=== PATIENT | male | born 1980 | race Caucasian/White ===

== ENCOUNTER 2018-05-05 09:10 | Outpatient (CLI) | payer BC, SELFPAY ==
[2018-05-05 09:38] LABS: Abs Immature Grans 0.01 k/cumm (0.0-0.09); Absolute Basophil Count 0.03 k/cumm (0.0-0.2); Absolute Eosinophil Count 0.19 k/cumm (0.0-0.7); Absolute Lymphocyte Count 2.11 k/cumm (1.2-3.4); Absolute Monocyte Count 0.69 k/cumm (0.11-0.7); Basophils % 0.4; Eosinophils % 2.7; HCT 46.8 % (40.0-50.0); HGB 16.4 g/dL (13.5-17.5); Immature Grans % 0.1; Lymphocytes % 30.4; Mean Corpuscular Hemoglobin 29.2 pg (27.0-33.0); Mean Corpuscular Volume 83.4 fL (80-95); Mean Platelet Volume 9.3 fL (8.0-11.0); Neutrophils % 56.4; Platelet Count 250 x1000/uL (130-400); RBC 5.61 m/cumm (4.50-6.00); RBC Distribution Width 12.6 % (11.8-14.1); White Blood Cell Count 6.93 k/cumm (4.4-10.8)
[2018-05-05 09:52] LABS: ALT 33 U/L (12-78); AST 20 U/L (15-37); Albumin 4.4 g/dL (3.4-5.0); Alkaline Phosphatase 81 U/L (46-116); Anion Gap 8.6 mmol/L (3-11); BUN 19 mg/dL (7-18); Bilirubin, Total 0.5 mg/dL (0.2-1.0); CO2 29.4 mmol/L (21.0-32.0); Calcium 9.7 mg/dL (8.5-10.1); Chloride 101 mmol/L (98-107); Glucose 105 mg/dL (70-100); LDH 164 U/L (85-227); Potassium 4.3 mmol/L (3.5-5.1); Sodium 139 mmol/L (136-145); Total Protein 8.4 g/dL (6.4-8.2)
[2018-05-05 10:03] LABS: Cholesterol 199 mg/dL (50-200); HDL Cholesterol 56 mg/dL (40-60); LDL CHOLESTEROL 121 mg/dL (<100); Triglyceride 240 mg/dL (30-150)
== END 2018-05-05 09:30 ==
PROVIDERS: PCP Family Medicine; Visit Provider Internal Medicine Hematology & Oncology
DX: Z85.820 Personal history of malignant melanoma of skin (principal)
CPT/HCPCS: 36415; 80053; 80061; 83721; 83615; 85025

== ENCOUNTER 2019-05-07 02:04 | Outpatient (CLI) | payer BC, SELFPAY ==
[2019-05-07 08:07] LABS: Absolute Basophil Count 0.03 k/cumm (0.0-0.2); Absolute Eosinophil Count 0.37 k/cumm (0.0-0.7); Absolute Lymphocyte Count 1.95 k/cumm (1.2-3.4); Absolute Monocyte Count 0.58 k/cumm (0.11-0.7); Absolute Neutrophil Count 3.15 k/cumm (1.2-6.7); Basophils % 0.5; Eosinophils % 6.1; HCT 44.7 % (40.0-50.0); HGB 15.9 g/dL (13.5-17.5); Lymphocytes % 32.1; Mean Corp. HGB Concentration 35.6 g/dL (32.0-36.0); Mean Corpuscular Hemoglobin 29.5 pg (27.0-33.0); Mean Corpuscular Volume 82.9 fL (80-95); Mean Platelet Volume 9.2 fL (8.0-11.0); Monocytes % 9.5; Neutrophils % 51.8; Platelet Count 249 x1000/uL (130-400); RBC 5.39 m/cumm (4.50-6.00); RBC Distribution Width 12.5 % (11.8-14.1); White Blood Cell Count 6.08 k/cumm (4.4-10.8)
[2019-05-07 08:41] LABS: Calculated LDL 117 mg/dL (<100); Cholesterol 202 mg/dL (<200); Glucose 114 mg/dL (74-106); HDL Cholesterol 40 mg/dL (40-60); Triglyceride 229 mg/dL (<150)
[2019-05-07 08:42] LABS: ALT 44 U/L (16-63); AST 29 U/L (15-37); Albumin 4.3 g/dL (3.4-5.0); Alkaline Phosphatase 74 U/L (46-116); Anion Gap 8.8 mmol/L (3-11); BUN 16 mg/dL (7-18); Bilirubin, Total 0.6 mg/dL (0.2-1.0); CO2 29.2 mmol/L (21.0-32.0); CREATININE 1.11 mg/dL (0.70-1.30); Calcium 9.2 mg/dL (8.5-10.1); Chloride 104 mmol/L (98-107); Glucose 114 mg/dL (74-106); LDH 168 U/L (85-227); Potassium 4.3 mmol/L (3.5-5.1); Sodium 142 mmol/L (136-145); Total Protein 7.5 g/dL (6.4-8.2)
== END 2019-05-07 02:24 ==
PROVIDERS: PCP Family Medicine; Visit Provider Internal Medicine Hematology & Oncology
DX: C43.9 Malignant melanoma of skin, unspecified (principal); C77.9 Secondary and unspecified malignant neoplasm of lymph node, unspecified; E78.5 Hyperlipidemia, unspecified; R73.9 Hyperglycemia, unspecified
CPT/HCPCS: 36415; 80053; 80061; 82947; 83615; 85025

== ENCOUNTER 2019-05-17 07:01 | Outpatient (CLI) | payer BC, SELFPAY ==
[2019-05-17 09:05] LABS: Hemoglobin A1C 5.7 % (3.8-5.6)
== END 2019-05-17 07:21 ==
PROVIDERS: PCP Family Medicine; Visit Provider Family Medicine
DX: R73.9 Hyperglycemia, unspecified (principal)
CPT/HCPCS: 36415; 83036

== ENCOUNTER 2020-05-05 12:50 | Outpatient (CLI) | payer BC, SELFPAY ==
[2020-05-05 13:33] LABS: Abs Immature Grans 0.03 10^3/uL (0.0-0.06); Absolute Basophil Count 0.03 10^3/uL (0.0-0.2); Absolute Eosinophil Count 0.13 10^3/uL (0.0-0.7); Absolute Monocyte Count 0.58 10^3/uL (0.1-0.8); Absolute Neutrophil Count 4.22 10^3/uL (1.2-6.7); Basophils % 0.4; Eosinophils % 1.8; HCT 45.1 % (40.0-50.0); Immature Grans % 0.4; Lymphocytes % 31.6; MCH 29.6 pg (27.0-33.0); MCHC 35.5 % (32.0-36.0); MCV 83.4 fL (80-95); MPV 9.3 fL (8.0-11.0); Neutrophils % 57.8; Nucleated RBC 0 %; Platelet Count 259 10^3/uL (130-400); RBC 5.41 10^6/uL (4.36-5.78); RDW 11.9 % (11.8-14.1); RDW-SD 35.2 fL; WBC 7.29 10^3/uL (4.4-10.8)
[2020-05-05 13:45] LABS: ALT 41 U/L (16-63); AST 24 U/L (15-37); Albumin 4.4 g/dL (3.4-5.0); Alkaline Phosphatase 72 U/L (46-116); Anion Gap 5.4 mmol/L (3-11); BUN 20 mg/dL (7-18); Bilirubin, Total 0.6 mg/dL (0.2-1.0); CO2 28.6 mmol/L (21.0-32.0); CREATININE 0.9 mg/dL (0.70-1.30); Calcium 9.8 mg/dL (8.5-10.1); Chloride 103 mmol/L (98-107); Glucose 114 mg/dL (74-106); Potassium 4.1 mmol/L (3.5-5.1); Sodium 137 mmol/L (136-145); Total Protein 8.2 g/dL (6.4-8.2)
[2020-05-05 13:56] LABS: Calculated LDL 84 mg/dL (<100); Cholesterol 194 mg/dL (<200); HDL Cholesterol 45 mg/dL (40-60); Triglyceride 329 mg/dL (<150)
[2020-05-05 14:02] LABS: Hemoglobin A1C 5.5 % (<5.7)
== END 2020-05-05 12:51 | disposition home or self-care (01) ==
LOC: LBO 12:50
PROVIDERS: PCP Family Medicine; Visit Provider Internal Medicine Hematology & Oncology
DX: E78.5 Hyperlipidemia, unspecified (principal); R73.9 Hyperglycemia, unspecified
CPT/HCPCS: 36415; 80053; 80061; 83036; 84478; 85025

== ENCOUNTER 2021-05-08 03:59 | Outpatient (CLI) | payer BC, SELFPAY ==
[2021-05-08 15:13] LABS: Abs Immature Grans 0.03 10^3/uL (0.0-0.06); Absolute Basophil Count 0.03 10^3/uL (0.0-0.2); Absolute Eosinophil Count 0.17 10^3/uL (0.0-0.7); Absolute Lymphocyte Count 2.73 10^3/uL (1.2-3.4); Absolute Monocyte Count 0.54 10^3/uL (0.1-0.8); Absolute Neutrophil Count 4.83 10^3/uL (1.2-6.7); Basophils % 0.4; HCT 42.7 % (40.0-50.0); Immature Grans % 0.4; Lymphocytes % 32.8; MCH 29.1 pg (27.0-33.0); MCHC 35.1 % (32.0-36.0); MCV 82.9 fL (80-95); MPV 9.1 fL (8.0-11.0); Monocytes % 6.5; Neutrophils % 57.9; Nucleated RBC 0 %; Platelet Count 344 10^3/uL (130-400); RBC 5.15 10^6/uL (4.36-5.78); RDW 11.7 % (11.8-14.1); RDW-SD 35.1 fL; WBC 8.33 10^3/uL (4.4-10.8)
[2021-05-08 15:28] LABS: ALT 36 U/L (16-63); AST 17 U/L (15-37); Albumin 4.1 g/dL (3.4-5.0); Alkaline Phosphatase 74 U/L (46-116); Anion Gap 10.6 mmol/L (3-11); BUN 16 mg/dL (7-18); Bilirubin, Total 0.4 mg/dL (0.2-1.0); CO2 25.4 mmol/L (21.0-32.0); CREATININE 1.1 mg/dL (0.70-1.30); Calcium 9.3 mg/dL (8.5-10.1); Chloride 102 mmol/L (98-107); Cholesterol 203 mg/dL (<200); Glucose 100 mg/dL (74-106); HDL Cholesterol 29 mg/dL (40-60); Potassium 3.7 mmol/L (3.5-5.1); Sodium 138 mmol/L (136-145); Total Protein 7.9 g/dL (6.4-8.2); Triglyceride 561 mg/dL (<150)
[2021-05-08 15:42] LABS: LDL CHOLESTEROL 82 mg/dL (<100)
== END 2021-05-08 04:00 | disposition home or self-care (01) ==
PROVIDERS: PCP Family Medicine; Visit Provider Nurse Practitioner Family
DX: C43.9 Malignant melanoma of skin, unspecified (principal); C77.9 Secondary and unspecified malignant neoplasm of lymph node, unspecified
CPT/HCPCS: 36415; 80053; 80061; 83721; 85025

== ENCOUNTER 2022-04-15 01:55 | Outpatient (CLI) | payer BC, SELFPAY ==
[2022-04-15 08:43] LABS: Calculated LDL 85 mg/dL (<100); Cholesterol 146 mg/dL (<200); HDL Cholesterol 43 mg/dL (40-60); Triglyceride 93 mg/dL (<150)
== END 2022-04-15 01:56 | disposition home or self-care (01) ==
LOC: LBO 01:55
PROVIDERS: PCP Family Medicine; Visit Provider Family Medicine
DX: E78.5 Hyperlipidemia, unspecified (principal)
CPT/HCPCS: 36415; 80061

== ENCOUNTER 2023-02-06 13:28 | Emergency (ER) | payer BC, SELFPAY ==
[2023-02-06 13:31] VITALS: BP 135/92; PULSE 108; RESP 18; TEMP 36.2; O2SAT 99
[2023-02-06 13:44] VITALS: BP 135/92; PULSE 108; RESP 18; TEMP 36.1; O2SAT 99
--- NOTE | 2023-02-06 14:18 | ED.GENADUL_ITS ---
Discharge Plan Disposition Patient Disposition: Home Condition: Stable Discharge Details Clinical Impression: Metastatic disease, Nausea & vomiting, Abdominal pain Primary Care Provider: Edwardo Bhakta ED Provider: Jil Carlson Home Meds and New Rx's Prescriptions: New ondansetron 4 mg tablet,disintegrating 4 mg PO Q8H PRN (Reason: nausea and vomiting) Qty: 20 0RF No Action ascorbic acid (vitamin C) 500 mg tablet 1,000 mg PO DAILY niacin (inositol niacinate) 500 mg capsule 1 cap PO DAILY acetylcysteine [NAC] 600 mg capsule 1,200 mg PO DAILY cholecalciferol (vitamin D3) 1,000 UNIT capsule 1 cap PO DAILY omega-3 fatty acids-fish oil 1 EACH capsule 1 cap PO DAILY THERAGRAN-M PREMIER CAPLET 1 EACH tablet 1 tab PO DAILY Discharge Instructions Instructions: Acute Nausea and Vomiting (ED) Additional Instructions: [facility] oncology will contact you in the next 1 to 2 days for your follow-up information Start with clear liquids and bland diet and advance slowly as tolerated Return to the emergency department if you start to have headache, visual changes, dizziness, ringing in your ears or any other new neurologic symptoms. Also return if you have vomiting that is not controlled by the Zofran Medical Decision Making Emergent evaluation of abdominal pain and vomiting. Initial differential includes viral illness, foodborne illness, renal colic, less likely appendicitis. Patient is pain-free at this time. Has a benign abdominal exam. Initial plan for fluid resuscitation, antiemetics, will check lab work and get CT imaging given the severity of his symptoms Patient CT imaging concerning for metastatic disease with pulmonary nodules and multiple nodes in the abdomen. Possible small bowel obstruction. Discussed with general surgery, she is recommending more extensive imaging to evaluate. I updated the patient on the imaging findings and he is feeling better. No additional nausea or vomiting, abdomen remains soft. Patient reports that he did have melanoma 11 years ago and was treated with chemotherapy at that time. 1755: Additional CT imaging reviewed. The patient has large adrenal masses bilaterally, multiple nodes in the retroperitoneum, left ilium lytic lesion. There are bilateral brain metastasis noted with edema, no mass effect or shift. I have contacted oncology services at [facility] for consultation and guidance regarding the patient's final disposition. Discussed with oncology fellow at [facility]. He has reviewed the patient's lab work and imaging. The working diagnosis is recurrence of metastatic melanoma. At this time he has no neurologic symptoms such as headache, visual change, dizziness, and is otherwise symptom-free regarding his abdominal pain and vomiting. They do not feel he needs to be transferred at this time but will schedule him for urgent follow-up. I discussed this with the patient and his family. Updated him on the imaging results and the plan with oncology. At this time I feel he is stable for discharge. He is provided a prescription for Zofran and instructed to advance his diet slowly after his vomiting. Strict return precautions including any neurologic symptoms headache, visual change, dizziness, ear ringing. In addition any persistent vomiting he should return to ED. Patient and family feel comfortable going home and are in aggreement with this plan Medical Records Medical records reviewed: Yes I reviewed the patient's medical records. Lab Data Lab results reviewed: Yes I reviewed the patient's lab results. HPI General Date/Time Provider Initiated Documentation: 02/06/23 13:41 . Limitations to Documentation: no limitations . Information obtained by: patient . HPI Narrative: 42-year-old gentleman with out significant past medical history presents for evaluation of abdominal pain and vomiting. Reports onset of symptoms at 9 PM last night. Reports multiple episodes of vomiting and has been dry heaving all day. No associated diarrhea. Has not been able to tolerate anything by mouth. Has only had 1 urine output today. Urine did not have blood, frequency urgency or dysuria. He reports that the vomiting is associated with severe pain. Pain is generalized, it comes and goes in waves. No known sick contacts. Went out to eat last night with friends and no one else has been vomiting. Related Data Home Medications Medication Instructions Recorded Confirmed Theragran-M Premier Caplet 1 tab PO DAILY 07/12/12 02/06/23 cholecalciferol (vitamin D3) 25 1 cap PO DAILY 07/12/12 02/06/23 mcg (1,000 unit) capsule omega-3 fatty acids-fish oil 300 1 cap PO DAILY 07/12/12 02/06/23 mg-1,000 mg capsule acetylcysteine 600 mg capsule (NAC) 1,200 mg PO DAILY 05/27/22 02/06/23 ascorbic acid (vitamin C) 500 mg 1,000 mg PO DAILY 05/27/22 02/06/23 tablet niacin (inositol niacinate) 500 mg 1 cap PO DAILY 05/27/22 02/06/23 capsule ondansetron 4 mg disintegrating 4 mg PO Q8H PRN nausea and 02/06/23 tablet vomiting #20 tabs Previous Rx's Medication Instructions Recorded ondansetron 4 mg disintegrating 4 mg PO Q8H PRN nausea and 02/06/23 tablet vomiting #20 tabs Allergies Allergy/AdvReac Type Severity Reaction Status Date / Time pineapple Allergy Intermediate childhood Verified 02/06/23 13:36 allergy General Stated Complaint: Abd Prob JEZ: 3 PFSH All Active Problems (Updated 02/06/23 @ 18:48 by Jil Carlson MD) Abdominal pain (Acute) Nausea & vomiting (Acute) Metastatic disease (Acute) SBO (small bowel obstruction) (Acute) Secondary to probable intra-abdominal metastatic melanoma Metastatic melanoma to lung (Acute) Melanoma metastatic to brain (Acute) Metastasis from malignant melanoma of skin (Acute) 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 Sister No problems noted. Brother No problems noted. Son No problems noted. Paternal Grandfather , age 85 No problems noted. Paternal Grandmother , age 65ish Cancer Social History Smoking/Tobacco Use Status: Former Tobacco Use Second Hand Exposure: Yes Smoking risk assessment performed?: Yes Alcohol Intake: current Alcohol Intake frequency: a few times a week Alcohol type: beer, wine and hard liquor Drug use: Never Substance use type: unknown Caregiver/Support person: No Household members: spouse and children Housing: house Number of Children: 1 Communication Needs: None Do you need help understanding health information?: Rarely Pets and animals: Yes Sexually active: Yes Do you think of yourself as: straight/heterosexual Current gender identity: male What is your relationship status?: How often do you talk on the phone with friends or family?: three or more times per week How often do you get together with friends or relatives?: once per week How often do you attend mormonism or yazdanism services?: decline to answer Do you belong to any clubs or organized social groups?: no Panel score (0-1 are the most socially isolated patients): 2 What type of physical activity do you participate in: decline to answer Duration: decline to answer Frequency: decline to answer Tamiko/Yazidism: None Special tamiko needs: No Seatbelt use: sometimes Helmet use: Yes Helmet use: sometimes Drive intox or ride w/intox boat driver: No Water heater temp set <120 deg: Yes Working smoke detector in home: Yes Fire extinguisher in home: Yes Carbon monox detector in home: Yes Firearms in home: Yes Firearms unloaded and locked: Yes Exam Narrative Exam Narrative: Review of Systems: All systems reviewed & are unremarkable except as noted in HPI and below: CONSTITUTIONAL: Alert and oriented Well-developed, no acute distress HEENT: NCAT EYES: PERRL, no conjunctival injection MOUTH dry MM CVS: Tachycardic, No murmurs or gallops. Peripheral pulses 2+ and equal in all extremities Brisk capillary refill in all extremities. No peripheral edema RESP: Unlabored respiratory effort, Clear to auscultation bilaterally No wheezes rales or rhonchi GI: Soft, Nontender, Nondistended, No organomegaly MSK: Extremities with full range of motion, no deformity or TTP SKIN: Warm, Dry. No rashes or lesions. NEURO: No focal neurologic deficits. Course Vital Signs Vital signs: Vital Signs Temperature 36.2 C L 02/06/23 13:31 Pulse 108 H 02/06/23 13:31 Respiratory Rate 18 02/06/23 13:31 Blood Pressure 135/92 H 02/06/23 13:31 Pulse Oximetry 99 02/06/23 13:31 Temperature 36.1 C L 02/06/23 13:44 Temperature Source Temporal Artery Scan 02/06/23 13:44 Pulse 108 H 02/06/23 13:44 Respiratory Rate 18 02/06/23 13:44 Respiratory Effort Normal 02/06/23 13:35 Blood Pressure 135/92 H 02/06/23 13:44 Blood Pressure Position Sitting 02/06/23 13:31 Pulse Oximetry 99 02/06/23 13:44 Oxygen Delivery Method Room Air 02/06/23 13:31 Oxygen Flow Rate 0 02/06/23 13:31
[2023-02-06] MEDS: Normal Saline 1,000 ML 1000 ML IV ×2 (14:32→15:57)
[2023-02-06] MEDS: FAMOTIDINE 20 MG/50 ML BAG 196.078 MG IV (14:32)
[2023-02-06] MEDS: Ketorolac 15 MG/ML VIAL 10 MG IVP (14:32)
[2023-02-06] MEDS: Ondansetron 4 MG/2 ML VIAL IVP (14:32)
[2023-02-06 14:33] LABS: Abs Immature Grans 0.06 10^3/uL (0.0-0.06); Absolute Lymphocyte Count 1.32 10^3/uL (1.2-3.4); Basophils % 0.3; Eosinophils % 0.1; HGB 14.9 g/dL (13.5-17.5); Immature Grans % 0.4; Lymphocytes % 8.5; MCH 26.7 pg (27.0-33.0); MCHC 33.9 % (32.0-36.0); MCV 79 fL (80-95); MPV 8.8 fL (8.0-11.0); Monocytes % 5.8; Neutrophils % 84.9; Platelet Count 354 10^3/uL (130-400); RBC 5.58 10^6/uL (4.36-5.78); RDW 12.5 % (11.8-14.1); RDW-SD 35.2 fL; WBC 15.57 10^3/uL (4.4-10.8)
[2023-02-06 14:34] LABS: Absolute Basophil Count 0.05 10^3/uL (0.0-0.2); Absolute Eosinophil Count 0.02 10^3/uL (0.0-0.7); Absolute Neutrophil Count 13.22 10^3/uL (1.2-6.7)
[2023-02-06 14:51] LABS: ALT 24 U/L (16-63); AST 15 U/L (15-37); Albumin 3.8 g/dL (3.4-5.0); Alkaline Phosphatase 104 U/L (46-116); Anion Gap 9.4 mmol/L (3-11); BUN 17 mg/dL (7-18); Bilirubin, Total 0.5 mg/dL (0.2-1.0); CO2 28.6 mmol/L (21.0-32.0); Calcium 9.6 mg/dL (8.5-10.1); Chloride 102 mmol/L (98-107); Estimated GFR 96.37 (mL/min/1.73m2); Glucose 136 mg/dL (74-106); Lipase 34 U/L (16-77); Magnesium 1.9 mg/dL (1.8-2.4); Potassium 3.9 mmol/L (3.5-5.1); Sodium 140 mmol/L (136-145); Total Protein 7.8 g/dL (6.4-8.2)
--- NOTE | 2023-02-06 15:26 | DI.CT_ITS ---
Exam(s) CT RENAL COLIC WO EXAM: CT RENAL COLIC WO CLINICAL HISTORY: abd pain. TECHNIQUE: Imaging Protocol: Axial computed tomography images with coronal and sagittal reformatted images were created and reviewed CONTRAST MATERIAL: Intravenous: none Oral: None COMPARISON: CT ABD/PELVIS WO W CONTRAST from 01/18/2011 CT CHEST ABD PELVIS WITH CONTRAST from 02/22/2012 FINDINGS: VISUALIZED LUNG BASES: There are multiple concerning nodules now evident in both visualized lung base s worrisome for metastatic disease. These range up to 13 mm size. There are no pleural effusions.. ABDOMEN: There is no ascites in the upper abdomen but there is small amount of ascites in the dependent aspect of the pelvis in this male patient.. LIVER: There are no obvious focal hepatic lesions evident of this noninfused study. GALLBLADDER/BILIARY: No obvious gallbladder pathology. CBD is not dilated. PANCREAS: No evidence of pancreatic mass nor dilatation of the pancreatic duct. SPLEEN: Spleen is not enlarged. No obvious intrasplenic lesions. ADRENALS: Bilateral concerning adrenal masses which were not previously evident in 2012 and most prob ably metastatic, given the findings in the lungs. On the right side this measures 5 x 3.5 cm. On th e left side the adrenal mass measures 4 by 2.6 cm. There also multiple nodules evident in the peritoneal cavity consistent with metastatic disease. KIDNEYS:No cysts evident. No solid renal masses. No calculi nor hydronephrosis. . ABDOMINAL AORTA: Abdominal aorta is not enlarged. LYMPH NODES: There is no retroperitoneal nor paraaortic adenopathy. ABDOMINAL WALL: No evidence of significant anterior abdominal wall nor inguinal hernia. GI: There are dilated small bowel loops measuring up to 3.3 cm, consistent with element of small ronit l obstruction. Transition point is in the right-side of the abdomen. PELVIS: LYMPH NODES: There is no intrapelvic nor inguinal adenopathy. GI: No evidence of appendicitis.No significant sigmoid diverticular disease. URINARY BLADDER: No calculi nor obvious masses evident REPRODUCTIVE: Prostate size upper normal. Seminal vesicles unremarkable. OSSEOUS: Lytic bone lesion noted in left side of the pelvis-left iliac bone.. This measures 4 cm cep halocaudal by 3 cm wide by 4 cm AP. No fracture seen. IMPRESSION: 1. Multilevel findings which are concerning for metastatic disease. There are multiple nodules in th e visualized lung bases which were not previously present and there are large masses in both adrenal glands with measurements as above which were not previously present and are suspicious for metastatic disease. 2. There also scattered nodules in the peritoneal cavity suspicious for metastatic disease. 3. There is a mid-distal small bowel obstruction pattern with transition point in the right-side of t he abdomen. There is some associated free fluid in the dependent aspect of the pelvis. Surgical con sultation recommended. RADIATION DOSE DELIVERED: Total DLP DATA REPOSITORY: All CT scans at this facility are submitted to the National Radiology Data Registry (NRDR) Dose Index Registry (DIR) with the [employer] (ACR). RADIATION OPTIMIZATION: All CT scans at this facility use at least one of these dose optimization te chniques: automated exposure control; mA and/or kV adjustment per patient size (includes targeted exa ms where dose is matched to clinical indication); or iterative reconstruction.
--- NOTE | 2023-02-06 16:04 | DI.VRAD_ITS ---
Addendum created by Nicolle Shaw MD on 02/06/2023 4:16:05 PM EST: THIS REPORT CONTAINS FINDINGS THAT MAY BE CRITICAL TO PATIENT CARE. The findings were verbally communicated via telephone conference with RUSSELL LEE at 4:15 PM EST on 02/06/2023. The findings were acknowledged and understood. Initial report created on 02/06/2023 4:04:33 PM EST: PROCEDURE INFORMATION: Exam: CT Abdomen And Pelvis Without Contrast Exam date and time: 02/06/2023 3:22 PM Age: 42 years old Clinical indication: Abdominal pain; Generalized; Patient HX: General mid abd pain TECHNIQUE: Imaging protocol: Computed tomography of the abdomen and pelvis without contrast. Radiation optimization: All CT scans at this facility use at least one of these dose optimization techniques: automated exposure control; mA and/or kV adjustment per patient size (includes targeted exams where dose is matched to clinical indication); or iterative reconstruction. COMPARISON: No relevant prior studies available. FINDINGS: Lungs: Multiple pulmonary nodules may represent metastatic disease.. Liver: Large area of low attenuation in the liver may represent fatty infiltration. Gallbladder and bile ducts: Normal. No calcified stones. No ductal dilation. Pancreas: Normal. No ductal dilation. Spleen: Normal. No splenomegaly. Adrenal glands: Both adrenal glands are enlarged and are not adrenal adenomas. Right adrenal 5 x 3.8 cm. Left adrenal gland 4 by 2.7 cm. Findings worrisome for metastatic disease. Kidneys and ureters: Normal. No hydronephrosis. Stomach and bowel: Dilated loops of small bowel with air-fluid levels may represent ileus or small bowel obstruction. Transition point may be in the right. Series 2, image 60- 56. The colon and distal small bowel are decompressed. Appendix: No evidence of appendicitis. Intraperitoneal space: Mild amount of free fluid in the pelvis Vasculature: Unremarkable. No abdominal aortic aneurysm. Lymph nodes: 19 x 15 mm node between the right kidney and inferior vena cava series 2, image 40 . Additional multiple scattered nodules in the peritoneal cavity may represent metastatic lesions. Urinary bladder: Unremarkable as visualized. Reproductive: Unremarkable as visualized. Bones/joints: 3.8 cm lucent lesion in the left ilium series 2 image 71 May represent a cyst or a lytic lesion. Recommend bone scan or PET scan for further evaluation. Soft tissues: Unremarkable. IMPRESSION: 1. Multiple pulmonary nodules may represent metastatic disease.. 2. 3.8 cm lucent lesion in the left ilium series 2 image 71 May represent a cyst or a lytic lesion. Recommend bone scan or PET scan for further evaluation. 3. Both adrenal glands are enlarged and are not adrenal adenomas. Right adrenal 5 x 3.8 cm. Left adrenal gland 4 by 2.7 cm. Findings worrisome for metastatic disease. 4. 19 x 15 mm node between the right kidney and inferior vena cava series 2, image 40 . Additional multiple scattered nodules in the peritoneal cavity may represent metastatic lesions. 5. Dilated loops of small bowel with air-fluid levels may represent ileus or small bowel obstruction. Transition point may be in the right. Series 2, image 60- 56. Dictated and Authenticated by: Nicolle Shaw MD. Ordering:JAYMIE Kim MD
[2023-02-06 16:33] VITALS: TEMP 36.9
[2023-02-06 16:34] VITALS: BP 107/75; PULSE 81; RESP 18; TEMP 36.9; O2SAT 97
[2023-02-06 16:41] LABS: Lab Add On Test DONE
[2023-02-06] MEDS: Normal Saline Flush 10 ML SYR IVP (16:43)
[2023-02-06] MEDS: Normal Saline - Diluent 50 ML VIAL IJ (16:43)
[2023-02-06] MEDS: Omnipaque 350 MG/ML 100 ML BTL IJ (16:50)
--- NOTE | 2023-02-06 16:55 | W.PM.PROGNOT ---
Date of Service Date of service: 02/06/23 Time of Service: 16:55 Assessment and Plan Assessment and plan (1) Metastatic melanoma to lymph node: Status: Acute (2) Hyperlipidemia: Status: Acute (3) Excessive drinking alcohol: Status: Chronic (4) Metastasis from malignant melanoma of skin: Status: Acute (5) Melanoma metastatic to brain: Status: Acute (6) Metastatic melanoma to lung: Status: Acute (7) SBO (small bowel obstruction): Status: Acute Subjective Subjective Interval history since last seen: Patient presented to the ER complaining of nonspecific abdominal pain and nausea and vomiting. Patient has a history of melanoma that was diagnosed in 2009. It was a stage IIIb. He did do interferon therapy in 2010. He had an intolerance to the therapy and its unclear if it was completed. He has not seen oncology recently. He does follow-up with dermatology and has no further suspicious lesions. He has not had any imaging in our facility since 2011. He has not followed up with oncology since 2019 at [facility] Ct 02/2023 IMPRESSION: 1. Multiple pulmonary nodules may represent metastatic disease.. 2. 3.8 cm lucent lesion in the left ilium series 2 image 71 May represent a cyst or a lytic lesion. Recommend bone scan or PET scan for further evaluation. 3. Both adrenal glands are enlarged and are not adrenal adenomas. Right adrenal 5 x 3.8 cm. Left adrenal gland 4 by 2.7 cm. Findings worrisome for metastatic disease. 4. 19 x 15 mm node between the right kidney and inferior vena cava series 2, image 40 . Additional multiple scattered nodules in the peritoneal cavity may represent metastatic lesions. 5. Dilated loops of small bowel with air-fluid levels may represent ileus or small bowel obstruction. Transition point may be in the right. Series 2, image 60- 56. I did review the notes from his [facility] chart; oncology notes from Dr. Buckley. Unfortunately it does appear that he has widely metastatic disease and may have a bowel obstruction due to intra-abdominal mets/intraperitoneal studding. No ascites is noted. However, the CT was a kidney stone protocol CT. We will do a dedicated CT of the head/chest/abdomen/pelvis. Additional laboratory work ordered. Unfortunately patient does appear to have widely metastatic melanoma. He is going to need a biopsy with genetic markers. He is going to need to get started on biologic immunotherapy immediately to resolve bowel obstruction. Being that we did not have the capacity to do a biopsy or chemo, it is imperative that he be sent to a tertiary center where he has access to these. Findings communicated to Dr. Carlson Objective Last Vital Signs Temp 36.9 C 02/06/23 16:34 Pulse 81 02/06/23 16:34 Resp 18 02/06/23 16:34 BP 107/75 02/06/23 16:34 Pulse Ox 97 02/06/23 16:34 Laboratory Results - last 24 hr 02/06/23 14:25 WBC 15.57 H RBC 5.58 Hgb 14.9 Hct 44.0 MCV 79 L MCH 26.7 L MCHC 33.9 RDW 12.5 Plt Count 354 MPV 8.8 Immature Gran % 0.4 Neutrophils % 84.9 Lymphocytes % 8.5 Monocytes % 5.8 Eosinophils % 0.1 Basophils % 0.3 Nucleated RBC % 0.0 Absolute Neutrophils 13.22 H Absolute Lymphocytes 1.32 Absolute Monocytes 0.90 H Absolute Eosinophils 0.02 Absolute Basophils 0.05 Sodium 140 Potassium 3.9 Chloride 102 Carbon Dioxide 28.6 Anion Gap 9.4 BUN 17 Creatinine 1.0 Est GFR (CKD-EPI 2020) 96.37 Glucose 136 H Calcium 9.6 Magnesium 1.9 Total Bilirubin 0.5 AST 15 ALT 24 Alkaline Phosphatase 104 Total Protein 7.8 Albumin 3.8 Lipase 34 Add-On Test Request DONE Time Spent with Patient Time Spent with Patient: 35-49 minutes Time was spent: preparing to see the patient(eg.review tests), ordering medications,tests, procedures, referring, communicating with other health day care provider, indepentently interpreting results and care coordination
[2023-02-06 17:17] LABS: C-Reactive Protein 2.81 mg/dL (0.0-0.3); Ferritin 50 ng/mL (26-388)
--- NOTE | 2023-02-06 17:18 | DI.CT_ITS ---
Exam(s) CT CHEST/ABD/PEL W EXAM: CT CHEST/ABD/PEL W CLINICAL HISTORY: SBO/malig melanoma. TECHNIQUE: Imaging Protocol: Axial computed tomography images with coronal and sagittal reformatted images were created and reviewed CONTRAST MATERIAL: Intravenous: Omnipaque 350 Contrast volume:100 ml Oral: None COMPARISON: CT CT RENAL COLIC WO from 02/06/2023 FINDINGS: CHEST: LUNGS: There are multiple metastatic nodules throughout both lung alford, the largest measuring 12 mm . No associated pleural effusions. No confluent infiltrates. No findings in the trachea and mainst em bronchi.. MEDIASTINUM: There is no hilar nor mediastinal adenopathy. Visualized thyroid unremarkable.There is a large mass in the left axilla measuring 4.6 x 3.7 cm most probably metastatic. This is in addition to smaller but abnormal appearing lymph nodes in both axillary regions. There is also a subcutaneous nodule anterior to the left pectoralis muscle measuring 1.2 x 1.3 cm, probably also metastatic. CARDIAC: Heart size is normal. There is no pericardial effusion.Caliber of the thoracic aorta is wit hin normal limits. OSSEOUS: No significant osseous lesions.. ABDOMEN: There metastatic nodules throughout the peritoneal cavity. LIVER: There are no focal hepatic lesions nor dilatation of intrahepatic ducts. GALLBLADDER/BILIARY: No obvious gallbladder pathology. CBD is not dilated. PANCREAS: No evidence of pancreatic mass nor dilatation of the pancreatic duct. SPLEEN: Spleen is not enlarged. There are no intrasplenic lesions. Splenic and portal veins are valentine nt. ADRENALS: Large bilateral metastatic lesions now evident in both adrenal glands measuring 5 cm on the right-sided 4 cm on the left side. KIDNEYS: No calculi nor hydronephrosis. No solid renal masses. No cysts. There is metastatic lesion in the fat between the IVC and right kidney measuring 1.5 x 1.6 cm. ABDOMINAL AORTA: Abdominal aorta is not enlarged. ABDOMINAL WALL: No evidence of significant anterior abdominal wall nor inguinal hernia. GI: Stomach duodenum are not distended.However, there are dilated small bowel loops with transition p oint in right lower quadrant. Suspicious for small bowel obstruction with transition point in the ri ght side of the abdomen PELVIS: LYMPH NODES: There is no intrapelvic nor inguinal adenopathy. GI: No evidence of appendicitis.No evidence of sigmoid diverticulitis. URINARY BLADDER: No calculi nor masses evident REPRODUCTIVE: Prostate size normal. Seminal vesicles unremarkable. There is some free fluid in the pelvis in this male patient. OSSEOUS: Lytic appearing bone lesion above the hip acetabulum left side of the pelvis measuring 4 x 3 cm. No fractures. IMPRESSION: 1. Diffuse metastatic disease in the chest and abdomen, as described above. 2. Dilated loops of small bowel +small amount of ascites suggest small-bowel obstruction with transit ion point in the right-side of the abdomen RADIATION DOSE DELIVERED: Total DLP DATA REPOSITORY: All CT scans at this facility are submitted to the National Radiology Data Registry (NRDR) Dose Index Registry (DIR) with the [employer] (ACR). RADIATION OPTIMIZATION: All CT scans at this facility use at least one of these dose optimization te chniques: automated exposure control; mA and/or kV adjustment per patient size (includes targeted exa ms where dose is matched to clinical indication); or iterative reconstruction.
--- NOTE | 2023-02-06 17:19 | DI.CT_ITS ---
Exam(s) CT HEAD W EXAM: CT HEAD W CLINICAL HISTORY: Brain mets. History of melanoma. TECHNIQUE: Imaging Protocol: Both noninfused and contrast infused CT scans of the brain were perform ed. IV Contrast Dose =75 cc Axial computed tomography images with coronal and sagittal reformatted images were created and review ed COMPARISON: No exams were available for comparison FINDINGS: There are no skull fractures, skull lesions, nor fluid in the visualized paranasal sinuses. There are multiple enhancing metastatic lesions in both sides of the brain as well as 1 enhancing les ion in the peripheral aspect of the right cerebellar hemisphere which measures 9 x 9 mm. Minimal keila rounding edema. The lesions in the supra tentorial compartment measure up to 1.2 cm size and exhibit minimal surrounding edema. No shift. No ventriculomegaly. IMPRESSION: There are multiple bilateral enhancing metastases in the brain, predominately supra tentorial but the re is also 1 enhancing similar lesion in the peripheral aspect of the right cerebellar hemisphere.The se lesions are associated with mild edema and without significant mass effect. No shift of midline s tructures. No ventriculomegaly. No lytic nor blastic lesions evident in the skull.. RADIATION DOSE DELIVERED: Total DLP DATA REPOSITORY: All CT scans at this facility are submitted to the National Radiology Data Registry (NRDR) Dose Index Registry (DIR) with the [employer] (A[employer]). RADIATION OPTIMIZATION: All CT scans at this facility use at least one of these dose optimization te chniques: automated exposure control; mA and/or kV adjustment per patient size (includes targeted exa ms where dose is matched to clinical indication); or iterative reconstruction.
--- NOTE | 2023-02-06 17:19 | DI.VRAD_ITS ---
PROCEDURE INFORMATION: Exam: CT Head With Contrast Exam date and time: 02/06/2023 4:58 PM Age: 42 years old Clinical indication: Abnormal findings; Abnormal radiologic findings of head/skull; Not specified; Patient HX: Odered per provider; Additional info: Was ordered w/ and w/o after cap w/c was done. Scanned 5 minutes after contrast injection TECHNIQUE: Imaging protocol: Computed tomography of the head with intravenous contrast. Radiation optimization: All CT scans at this facility use at least one of these dose optimization techniques: automated exposure control; mA and/or kV adjustment per patient size (includes targeted exams where dose is matched to clinical indication); or iterative reconstruction. Contrast material: OMNI 350; Contrast volume: 100 ml; Contrast route: INTRAVENOUS (IV); COMPARISON: No relevant prior studies available. FINDINGS: Brain: Multiple enhancing lesions bilaterally in the cerebral hemispheres measuring up to 15 mm right occipital lobe. Mild surrounding edema. Right lateral cerebellar lesion measuring up to 8 mm Cerebral ventricles: Unremarkable. No ventriculomegaly. Bones/joints: Unremarkable. No acute fracture. Paranasal sinuses: Visualized sinuses are unremarkable. No fluid levels. Mastoid air cells: Visualized mastoid air cells are well aerated. Soft tissues: Unremarkable. IMPRESSION: Bilateral metastases as described . Mild edema without significant mass effect Dictated and Authenticated by: Benjamin Montano MD. Ordering:SLICK Montalvo MD
[2023-02-06 17:29] LABS: Vitamin D 25 Total 19.8 ng/mL (30-100)
--- NOTE | 2023-02-06 17:40 | DI.VRAD_ITS ---
PROCEDURE INFORMATION: Exam: CT Chest With Contrast; Diagnostic Exam date and time: 02/06/2023 4:48 PM Age: 42 years old Clinical indication: Other: Pain; Other: Check for malignancy; Patient HX: PT had a non con renal colic appx 1 TECHNIQUE: Imaging protocol: Diagnostic computed tomography of the chest with contrast. 3D rendering (Not supervised by radiologist): MIP and/or 3D reconstructed images were created by the technologist. Radiation optimization: All CT scans at this facility use at least one of these dose optimization techniques: automated exposure control; mA and/or kV adjustment per patient size (includes targeted exams where dose is matched to clinical indication); or iterative reconstruction. Contrast material: OMNI 350; Contrast volume: 100 ml; Contrast route: INTRAVENOUS (IV); COMPARISON: CT RENAL COLIC WO 02/06/2023 3:22 PM FINDINGS: Lungs: Multiple pulmonary nodules bilaterally consistent with pulmonary metastasis. Pleural spaces: Unremarkable. No pneumothorax. No pleural effusion. Heart: Unremarkable. No cardiomegaly. No pericardial effusion. Lymph nodes: Large node in the left axilla 4.3 x 3.9 cm series 4, image 17. Additional nodes in the soft tissues bilaterally. Vasculature: Unremarkable. No aortic aneurysm. Bones/joints: Unremarkable. No acute fracture. Soft tissues: Unremarkable. IMPRESSION: 1. Large node in the left axilla 4.3 x 3.9 cm series 4, image 17. Additional nodes in the soft tissues bilaterally. 2. Multiple pulmonary nodules bilaterally consistent with pulmonary metastasis. PROCEDURE INFORMATION: Exam: CT Abdomen And Pelvis With Contrast Exam date and time: 02/06/2023 4:48 PM Age: 42 years old Clinical indication: Other: Pain; Other: Check for malignancy; Patient HX: PT had a non con renal colic appx 1 TECHNIQUE: Imaging protocol: Computed tomography of the abdomen and pelvis with contrast. 3D rendering (Not supervised by radiologist): MIP and/or 3D reconstructed images were created by the technologist. Radiation optimization: All CT scans at this facility use at least one of these dose optimization techniques: automated exposure control; mA and/or kV adjustment per patient size (includes targeted exams where dose is matched to clinical indication); or iterative reconstruction. Contrast material: OMNI 350; Contrast volume: 100 ml; Contrast route: INTRAVENOUS (IV); COMPARISON: CT RENAL COLIC WO 02/06/2023 3:22 PM FINDINGS: Liver: Normal. No mass. Gallbladder and bile ducts: Normal. No calcified stones. No ductal dilation. Pancreas: Normal. No ductal dilation. Spleen: Normal. No splenomegaly. Adrenal glands: Again demonstrated are large adrenal masses bilaterally. 5 cm on the right and 4 cm on the left. Findings consistent with adrenal metastasis. Kidneys and ureters: Normal. No hydronephrosis. Stomach and bowel: Again demonstrated are s dilated loops of small bowel. Evidence of slowed motility abdomen series 7, image 62.. Transition point is likely in the region where there is slowed motility. Findings may reflect bowel obstruction or ileus Appendix: No evidence of appendicitis. Intraperitoneal space: Mild amount of free fluid in the pelvis Retroperitoneal space: Again demonstrated are multiple nodules especially in the retroperitoneum but also in the peritoneal region of the abdomen. Presumed to be metastatic disease.. Vasculature: Unremarkable. No abdominal aortic aneurysm. Lymph nodes: Unremarkable. No enlarged lymph nodes. Urinary bladder: Unremarkable as visualized. Reproductive: Unremarkable as visualized. Bones/joints: 3.8 cm lucency in the left ilium may represent lytic lesion. Soft tissues: Unremarkable. Other findings: Please refer to the report earlier in the day for additional findings IMPRESSION: 1. Again demonstrated are large adrenal masses bilaterally. 5 cm on the right and 4 cm on the left. Findings consistent with adrenal metastasis. 2. Again demonstrated are multiple nodules especially in the retroperitoneum but also in the peritoneal region of the abdomen. Presumed to be metastatic disease.. 3. 3.8 cm lucency in the left ilium may represent lytic lesion. 4 Again demonstrated are s dilated loops of small bowel. Evidence of slowed motility abdomen series 7, image 62.. Transition point is likely in the region where there is slowed motility. Findings may reflect bowel obstruction or ileus Dictated and Authenticated by: Nicolle Shaw MD. Ordering:SLICK Montalvo MD
[2023-02-06 17:41] LABS: LDH 260 U/L (85-227)
[2023-02-06 18:46] VITALS: BP 119/92; PULSE 96; RESP 18; TEMP 36.9; O2SAT 97
[2023-02-06] MEDS: Ondansetron O.D.T. 4 MG TABEF, 3 TABS/BTL PO (18:54)
== END 2023-02-06 18:57 | disposition home or self-care (01) ==
PROVIDERS: Surgery; Emergency Provider Emergency Medicine; PCP Family Medicine
DX: R10.9 Unspecified abdominal pain; R11.2 Nausea with vomiting, unspecified; Z85.118 Personal history of other malignant neoplasm of bronchus and lung
CPT/HCPCS: 36415; 74177; 80053; 82306; 83690; 96361; 96365; 96375; 99285; 70460; 71260; 74176; 82728; 83615; 83735; 85025; 86140; 99284; J1885; J2405; J3490

== ENCOUNTER 2023-02-21 05:33 | Inpatient (IN) | payer BC, SELFPAY ==
[2023-02-21] VITALS (54 sets, daily range): BP systolic 116–137; BP diastolic 73–97; PULSE 79–116; RESP 15–21; TEMP 36.9–38.2; O2SAT 91–98
--- NOTE | 2023-02-21 05:44 | W.ED.GENAD ---
Discharge Plan Discharge Details Chief Complaint: GenMedical Primary Care Provider: Edwardo Bhakta ED Provider: Evita Montes Home Meds and New Rx's Prescriptions: No Action ascorbic acid (vitamin C) 500 mg tablet 1,000 mg PO DAILY Hold Instructions: immunotherapy niacin (inositol niacinate) 500 mg capsule 1 cap PO DAILY Hold Instructions: immunotherapy acetylcysteine [NAC] 600 mg capsule 1,200 mg PO DAILY Hold Instructions: immunotherapy cholecalciferol (vitamin D3) 1,000 UNIT capsule 1 cap PO DAILY Hold Instructions: immunotherapy omega-3 fatty acids-fish oil 1 EACH capsule 1 cap PO DAILY Hold Instructions: immunotherapy THERAGRAN-M PREMIER CAPLET 1 EACH tablet 1 tab PO DAILY Hold Instructions: immunotherapy hydromorphone 2 mg tablet 2 mg PO Q4H PRN Hold Instructions: immunotherapy ibuprofen 600 mg tablet 600 mg PO Q8H PRN Hold Instructions: immunotherapy senna-docusate sodium Tablet PO BID Hold Instructions: immunotherapy ondansetron 4 mg tablet,disintegrating 4 mg PO Q8H PRN (Reason: nausea and vomiting) Qty: 20 0RF Hold Instructions: immunotherapy Medical Decision Making This is a 42-year-old male with recurrent metastatic melanoma who has had his initial immunotherapy at [facility] and presents today with 3 days of nausea vomiting and diarrhea. These are similar to those symptoms with which he presented last week when his recurrence was diagnosed. He was told that side effects from the immunotherapy would most likely occur after the third or fourth dose. He certainly could have a partial small bowel obstruction or even a more benign etiology such as a gastroenteritis. He looks slightly dehydrated but does not appear septic. He has known metastases to his lungs brain and adrenal glands. My plan is to consult [facility] oncology at the behest of his . If they are in agreement we will obtain blood work including CBC and comprehensive metabolic panel to evaluate for leukopenia and leukocytosis, anemia, thrombocytopenia, electrolytes, renal and liver function tests. I would also like to obtain a CT of the abdomen and pelvis as well as urinalysis to evaluate his abdominal pain and determine his level of dehydration. He had taken ondansetron prior to his transfer from home by EMS and has not had any further vomiting. Imaging Data Radiologic Study: Imaging: CT Scan (Abdomen and pelvis with IV contrast) Lab Data Lab results reviewed: Yes I reviewed the patient's lab results. HPI General Mode of arrival: EMS. Date/Time Provider Initiated Documentation: 02/21/23 05:43. Limitations to Documentation: no limitations. Information obtained by: patient, family (), EMS, RN notes reviewed and old records reviewed. HPI Narrative: Time seen was on arrival in bed 4. The patient is an unfortunate 42-year-old male who was diagnosed with recurrent metastatic malignant melanoma here on 02/06/23 after he presented with abdominal pain nausea and vomiting and was found to have a partial small bowel obstruction and the recurrence of his melanoma which included mets to his brain, lungs, and adrenal glands. He was initially diagnosed in 2010 and I believe he had immunotherapy at that time which he did not complete secondary to side effects. He was discharged from this facility from the emergency department and presented to the emergency department at [facility] on February 07. He was admitted for 3 days for rehydration and staging. He returned to [facility] on February 10 for his first round of of immunotherapy. He was brought in this morning by EMS with 3 days of lower abdominal pain, nausea vomiting and diarrhea. He states that he has been having diarrhea every hour. He denies any blood in the stool. He denies any fever. He took Zofran at 4 AM with minimal relief. He is complaining of intermittent bilateral quadrant abdominal pain associated with nausea vomiting and diarrhea. No recent foreign travel, antibiotics, sick contacts or unusual foods. Patient's is quite adamant that he be transferred immediately to [facility] and does not want the patient to receive any medications or treatment without consultation with his oncologist. She has spoken with the on-call oncologist. An IV was established en route and he received IV fluids but no other medications. His vital signs were stable en route. Related Data Home Medications Medication Instructions Recorded Confirmed Theragran-M Premier Caplet 1 tab PO DAILY 07/12/12 02/21/23 cholecalciferol (vitamin D3) 25 1 cap PO DAILY 07/12/12 02/21/23 mcg (1,000 unit) capsule omega-3 fatty acids-fish oil 300 1 cap PO DAILY 07/12/12 02/21/23 mg-1,000 mg capsule acetylcysteine 600 mg capsule (NAC) 1,200 mg PO DAILY 05/27/22 02/21/23 ascorbic acid (vitamin C) 500 mg 1,000 mg PO DAILY 05/27/22 02/21/23 tablet niacin (inositol niacinate) 500 mg 1 cap PO DAILY 05/27/22 02/21/23 capsule ondansetron 4 mg disintegrating 4 mg PO Q8H PRN nausea and 02/06/23 02/21/23 tablet vomiting #20 tabs hydromorphone 2 mg tablet 2 mg PO Q4H PRN 02/17/23 02/21/23 ibuprofen 600 mg tablet 600 mg PO Q8H PRN 02/17/23 02/21/23 senna-docusate sodium tablet tab PO BID 02/17/23 Previous Rx's Medication Instructions Recorded ondansetron 4 mg disintegrating 4 mg PO Q8H PRN nausea and 02/06/23 tablet vomiting #20 tabs Allergies Allergy/AdvReac Type Severity Reaction Status Date / Time pineapple Allergy Intermediate childhood Verified 02/21/23 05:43 allergy General Stated Complaint: GenMedical JEZ: 3 Review of Systems Narrative: see hpi PFSH All Active Problems Abdominal pain (Acute) Nausea & vomiting (Acute) Metastatic disease (Acute) SBO (small bowel obstruction) (Acute) 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 Sister No problems noted. Brother No problems noted. Son No problems noted. Paternal Grandfather , age 85 No problems noted. Paternal Grandmother , age 65ish Cancer Social History Smoking/Tobacco Use Status: Former Tobacco Use Second Hand Exposure: Yes Smoking risk assessment performed?: Yes Alcohol Intake: current Alcohol Intake frequency: a few times a week Alcohol type: beer, wine and hard liquor Drug use: Never Substance use type: unknown Caregiver/Support person: No Household members: spouse and children Housing: house Number of Children: 1 Communication Needs: None Do you need help understanding health information?: Rarely Pets and animals: Yes Sexually active: Yes Do you think of yourself as: straight/heterosexual Current gender identity: male What is your relationship status?: How often do you talk on the phone with friends or family?: three or more times per week How often do you get together with friends or relatives?: once per week How often do you attend taoism or cheondoism services?: decline to answer Do you belong to any clubs or organized social groups?: no Panel score (0-1 are the most socially isolated patients): 2 What type of physical activity do you participate in: decline to answer Duration: decline to answer Frequency: decline to answer Tamiko/Roman Catholic: None Special tamiko needs: No Seatbelt use: sometimes Helmet use: Yes Helmet use: sometimes Drive intox or ride w/intox livery car driver: No Water heater temp set <120 deg: Yes Working smoke detector in home: Yes Fire extinguisher in home: Yes Carbon monox detector in home: Yes Firearms in home: Yes Firearms unloaded and locked: Yes Do you feel safe at home: Yes Do you feel safe in your relationship?: Yes Exam Narrative Exam Narrative: Patient is a well-developed well-nourished male lying on the stretcher. No acute distress. His initial blood pressure was 135/97 heart rate 90 respiratory rate 16 he was afebrile with a temp of 36.9 ?C and a room air O2 sat of 98%. He is alert and oriented with a GCS of 15. He appears to be having intermittent spasmodic abdominal pain. Const General: cooperative, healthy appearing, comfortable, no acute distress, well developed, well groomed and well hydrated Nutritional Appearance: average body habitus and well nourished Orientation: alert, awake and oriented x3 HENMT Head: normal to inspection, normocephalic and atraumatic Ears: hearing grossly normal bilaterally and external ears normal General nose exam: external nose normal, nares normal and no nasal discharge Face and sinus: normal facial exam, sinuses nontender and face symmetric Mouth: lip normal, tongue normal, oropharynx normal, moist mucous membranes abnormal (Slight decreased moisture of his mucous membranes) and other (Normal phonation. The patient is handling secretions. ) Throat: posterior oropharynx normal and uvula midline Eyes General: appearance normal, both eyes and all related structures Eyelids: eyelids normal Conjunctivae: conjunctivae normal Sclera: sclerae normal Cornea: corneas normal Pupils: PERRL EOM: EOM intact bilaterally and No nystagmus Direct ophthalmoscopy: normal light reflex Neck Neck: normal visual inspection, full ROM, no lymphadenopathy, no meningeal signs, trachea midline, supple, no tracheal deviation and no JVD Lymphatic: no lymphadenopathy noted Chest Chest: normal inspection of the chest Resp Effort & Inspection: normal respiratory effort, able to speak in complete sentences, no audible wheezes, no nasal flaring, no respiratory distress, no retractions, no stridor, not tachypneic, no tracheal deviation, no use of accessory muscles, No prolonged expiratory phase and other (Normal inspiratory to expiratory ratio.) Auscultation: clear to auscultation bilaterally, no rales, no rhonchi, no wheezes and no rubs Tactile Fremitus: tactile fremitus absent Cardio Jugular venous pressure: no JVD Palpation: normal PMI Rate: regular rate Rhythm: regular rhythm Heart Sounds: S1 normal, S2 normal, no gallops, no murmurs and no rubs GI Inspection: normal to inspection and non-distended Palpation: soft, no hepatosplenomegaly, no guarding, no splenomegaly, tender (Mild bilateral lower quadrant tenderness no rebound or guarding) and No ascites Auscultation: hypoactive bowel sounds General: No CVA tenderness Back/Spine/Pelvis Back: no CVA tenderness and No back tenderness Cervical Spine: cervical ROM normal Skin General skin exam: no rashes or lesions noted, turgor normal, no petechiae, no purpura and other (Skin is normal for ethnicity.) Lesions: no lesions Rashes: no rashes Trauma: no lacerations or abrasions Other: His skin appeared shiny but normal for ethnicity. Neuro General: patient alert, patient awake, patient oriented x3, moves all extremities, no meningeal signs, no focal motor deficits and CN's II-XI intact bilaterally Cranial Nerves: CN's II-XI intact bilaterally, PERRL, EOM intact bilaterally, no nystagmus, facial strength normal, tongue midline, hearing normal and no nystagmus Cognition: normal cognition Speech: speech normal Motor: muscle tone normal throughout and strength 5/5 throughout Sensory Exam: no sensory deficits noted Pupils: Normal pupillary reactivity/response: bilateral Extrem General: normal to inspection, full ROM, capillary refill normal, no clubbing, cyanosis or edema and no calf tenderness Psych Appearance: grossly normal Affect: normal affect Attitude: cooperative Thought Process: normal Thought Content: normal Insight: insight good Judgment: judgment good Other: The patient appears to have capacity make medical decisions. Course 05:45 we called the transfer center at [facility] and I spoke with Dr. Alexandra Anglin the oncologist on-call who spoke with the patient's . He reassured her that we could do labs and imaging and then we would discuss the results of the ancillary services including radiology we will follow him and together determine the disposition and treatment plan. He recommended that we continue IV fluids as recommended and send a stool panel. He agreed with the plan to obtain a CT scan of the abdomen and pelvis. He recommended we use IV acetaminophen for pain control. The patient declined any pain medicine Vital Signs Vital signs: Vital Signs Temperature 36.9 C 02/21/23 05:30 Pulse 90 02/21/23 05:30 Respiratory Rate 16 02/21/23 05:30 Blood Pressure 135/97 H 02/21/23 05:30 Pulse Oximetry 98 02/21/23 05:30 Temperature 36.9 C 02/21/23 05:38 Temperature Source Temporal Artery Scan 02/21/23 05:38 Pulse 90 02/21/23 05:38 Respiratory Rate 16 02/21/23 05:40 Respiratory Effort Normal, Non-Labored 02/21/23 05:40 Respiratory Depth Normal 02/21/23 05:40 Respiratory Pattern Normal 02/21/23 05:40 Blood Pressure 135/97 H 02/21/23 05:38 Blood Pressure Position Supine 02/21/23 05:38 Pulse Oximetry 97 02/21/23 05:38 Oxygen Delivery Method Room Air 02/21/23 05:38 Oxygen Flow Rate 0 02/21/23 05:30
[2023-02-21] MEDS: Normal Saline 1,000 ML 1000 ML IV (05:50)
[2023-02-21 06:05] LABS: Abs Immature Grans 0.03 10^3/uL (0.0-0.06); Absolute Basophil Count 0.03 10^3/uL (0.0-0.2); Absolute Lymphocyte Count 1.32 10^3/uL (1.2-3.4); Absolute Monocyte Count 1.38 10^3/uL (0.1-0.8); Absolute Neutrophil Count 6.68 10^3/uL (1.2-6.7); Basophils % 0.3; HCT 37.9 % (40.0-50.0); HGB 12.9 g/dL (13.5-17.5); Immature Grans % 0.3; Lymphocytes % 13.8; MCH 25.7 pg (27.0-33.0); MCV 76 fL (80-95); MPV 8.7 fL (8.0-11.0); Monocytes % 14.5; Neutrophils % 70.1; Platelet Count 395 10^3/uL (130-400); RBC 5.01 10^6/uL (4.36-5.78); RDW 12.3 % (11.8-14.1); RDW-SD 33.5 fL; WBC 9.54 10^3/uL (4.4-10.8)
--- NOTE | 2023-02-21 06:12 | DI.CT_ITS ---
Exam(s) CT ABDOMEN PELVIS W EXAM: CT ABDOMEN PELVIS W CLINICAL HISTORY: Bilat lower abd pain TECHNIQUE: Imaging Protocol: Axial computed tomography images with coronal and sagittal reformatted images were created and reviewed CONTRAST MATERIAL: Intravenous: Omnipaque 350 Contrast volume:100 mL Oral: No COMPARISON: CT ABD/PELVIS WO W CONTRAST from 01/18/[address] CHEST/ABD/PEL W from 02/06/[address] RENAL COLIC WO from 02/06/2023 FINDINGS: ABDOMEN: Lung Bases: There are multiple pulmonary nodules consistent with metastatic disease in the lung bases . Bilateral basilar atelectasis is seen. Liver: Normal density. No measurable mass. The dome of the liver was not included on this examination . Portal, Superior Mesenteric, and Splenic Veins: Unremarkable. Gallbladder and Biliary Tract: No radiodense calculus or dilation. Pancreas: Normal density, no abnormal calcifications or inflammatory process. Spleen: Normal. Adrenals: There are bilateral adrenal masses. The right adrenal mass measures 6 x 4.2 cm. The left adrenal mass measures 4.4 x 2.5 cm. The findings are most suggestive of metastatic disease. Kidneys: Normal size, contour and axis. No radiodense stones or obstructive uropathy. No masses seen. There is a circum aortic left renal vein. Abdominal Aorta: Abdominal portion non-dilated. Bowel: There are dilated loops of small bowel seen in the central abdomen. The terminal ileum is of normal caliber. There is mild bowel wall thickening seen in the proximal small bowel in the left upp er quadrant. There is a loop of small bowel in the left abdomen (series 5, image 540) with diffuse kris wel wall thickening. Neoplasm should be considered. This appears to represent the transition point. N o evidence of appendicitis. There are multiple intramural nodules seen along the wall of the stomach . The largest measures 1.8 cm. The distal colon is underdistended. This may contribute to the apparen t wall thickening. Colitis cannot be excluded. Peritoneal Cavity: There are numerous soft tissue nodules scattered within the abdomen and pelvis. T he largest is interposed between the liver and the kidney this is new compared to the examination fro m 02/06/2018. This measures 9.1 x 5.3 cm. There are nodules associated with the small bowel. The find ings are consistent with metastatic disease. No free air.There is a small amount of ascites in the p radha. Lymph Nodes: Please see the above section under peritoneal cavity. Bones: Within normal limits for the patient's age. There is again seen a lytic lesion in the left il iac bone. Soft Tissues: There is again seen a soft tissue nodule in the right flank. Likely represented metast atic disease. PELVIS: Bladder: Symmetric distention, no gross wall thickening. Reproductive Organs: Unremarkable as visualized. Lymph Nodes: Within normal limits. Bones: Within normal limits for the patient's age. IMPRESSION: 1. Circumferential wall thickening in loops of small bowel in the left lower quadrant. (Series 5, i mage 540). Findings are suspicious for neoplasm. 2. Findings consistent with small-bowel obstruction with a transition point being the lesion in the s mall bowel in the left lower quadrant. 3. Diffuse thoracic, abdominal and pelvic metastatic disease. Findings include the adrenal glands, me sentery and retroperitoneum, bowel and bones. Please see the above discussion for complete details. RADIATION DOSE DELIVERED: Total DLP DATA REPOSITORY: All CT scans at this facility are submitted to the National Radiology Data Registry (NRDR) Dose Index Registry (DIR) with the [employer] (ACR). RADIATION OPTIMIZATION: All CT scans at this facility use at least one of these dose optimization te chniques: automated exposure control; mA and/or kV adjustment per patient size (includes targeted exa ms where dose is matched to clinical indication); or iterative reconstruction.
[2023-02-21 06:20] LABS: ALT 22 U/L (16-63); AST 14 U/L (15-37); Albumin 2.8 g/dL (3.4-5.0); Alkaline Phosphatase 76 U/L (46-116); Anion Gap 10.8 mmol/L (3-11); BUN 11 mg/dL (7-18); Bilirubin, Total 0.4 mg/dL (0.2-1.0); CO2 24.2 mmol/L (21.0-32.0); Calcium 8.7 mg/dL (8.5-10.1); Chloride 99 mmol/L (98-107); Estimated GFR 96.37 (mL/min/1.73m2); Glucose 126 mg/dL (74-106); Lipase 40 U/L (16-77); Potassium 3.7 mmol/L (3.5-5.1); Sodium 134 mmol/L (136-145); Total Protein 6.7 g/dL (6.4-8.2)
[2023-02-21] MEDS: Normal Saline - Diluent 50 ML VIAL IJ (06:36)
[2023-02-21] MEDS: Omnipaque 350 MG/ML 100 ML BTL IJ (06:36)
[2023-02-21] MEDS: Normal Saline Flush 10 ML SYR IVP ×3 (06:37→20:24)
[2023-02-21] MEDS: Normal Saline 1,000 ML 150 ML IV ×3 (07:34→23:30)
--- NOTE | 2023-02-21 08:56 | DI.VRAD_ITS ---
Addendum created by Sonia Schumacher MD on 02/21/2023 8:56:22 AM EST: THIS REPORT CONTAINS FINDINGS THAT MAY BE CRITICAL TO PATIENT CARE. The findings were verbally communicated via telephone conference at 8:50 AM EST on 02/21/[address] Flores. The findings were acknowledged and understood. Initial report created on 02/21/2023 8:55:39 AM EST: PROCEDURE INFORMATION: Exam: CT Abdomen And Pelvis With Contrast Exam date and time: 02/21/2023 6:49 AM Age: 42 years old Clinical indication: Abdominal pain; Localized; Patient HX: Bilat lower abd pain; Diarrhea/constipation/vomiting TECHNIQUE: Imaging protocol: Computed tomography of the abdomen and pelvis with contrast. COMPARISON: 1. CT CHEST/ABD/PEL W 02/06/2023 4:[address] RENAL COLIC WO 02/06/2023 3:22 PM FINDINGS: Lungs: Multiple solid pulmonary nodules are again seen throughout both lung bases, one of the largest a 1.2 cm nodule in the posterior left lower lobe (series 4, image 2), not significantly changed and most compatible with bilateral pulmonary metastases. There are minor dependent hypoventilatory changes in both lower lobes. There are no pleural effusions. Liver: Unremarkable. Gallbladder and bile ducts: Unremarkable. No calcified gallstones. No intrahepatic or extrahepatic biliary ductal dilation. Pancreas: Unremarkable. Spleen: Unremarkable. The spleen is normal in size. Adrenal glands: Unchanged masslike enlargement of both adrenal glands which are heterogeneously enhancing and lobulated, consistent with bilateral adrenal metastases. Kidneys and ureters: No hydronephrosis or hydroureter. Symmetric renal enhancement. No suspicious renal masses. Stomach and bowel: Multiple intraluminal soft tissue masses are seen along the periphery of the stomach, one of the largest measuring 2.1 cm x 1.5 cm in the posterior body of the stomach (series 4, image 12), highly suspicious for metastases. These were not visible on the two recent prior CTs due to underdistention of the stomach. There are multiple dilated loops of proximal and mid small bowel which contain air-fluid levels. There is a transition point in a loop of left lower quadrant bowel which is fecalized, consistent with stasis. At the site of transition there is an approximately 3.5 cm length of irregular mural thickening in the small bowel (see coronal images 29-39), highly suspicious for an annular constricting mass. There is liquid stool with air-fluid levels throughout the colon and in the rectum, which implies impending diarrhea. The sigmoid colon appears somewhat thick-walled, suspicious for colitis. Appendix: A nondilated appendix is identified. Intraperitoneal space: Numerous solid soft tissue nodules of varying sizes throughout the abdomen and pelvis which may represent metastatic implants and/or abnormal lymph nodes, not significantly changed. Trace interloop fluid is seen in the small bowel mesentery. No organized fluid collection or pneumoperitoneum. Retroperitoneal space: Numerous solid soft tissue nodules of varying sizes throughout the retroperitoneum, for example a 2 cm nodule lateral to the left psoas major muscle on series 4, image 54, most compatible with metastatic implants. Vasculature: Unremarkable. The abdominal aorta is normal in caliber. Lymph nodes: The multiple solid soft tissue nodules throughout the peritoneal cavity and in the retroperitoneum which may represent abnormal lymph nodes or metastatic implants. Urinary bladder: Unremarkable. Reproductive: Unremarkable as visualized. Bones/joints: Large lytic lesion in the inferior left ilium which partially erodes the overlying cortex, not significantly changed, most compatible with an osseous metastasis. Soft tissues: 1.5 cm x 0.9 cm subcutaneous soft tissue nodule in the right lumbar region at L2 (series 4, image 46), a suspected subcutaneous metastasis. IMPRESSION: 1. Small bowel obstruction. There is a transition point in a left lower quadrant small bowel loop which is irregularly thick-walled, highly suspicious for an underlying annular constricting mass. 2. Findings suspicious for colitis with impending diarrhea. 3. Findings consistent with extensive metastatic malignancy; see discussion above. Dictated and Authenticated by: Sonia Schumacher MD. Ordering:QAMAR Jama MD
--- NOTE | 2023-02-21 09:20 | ED.PROG_ITS ---
Date of service: 02/21/23 Time of Service: 09:20 Medical Decision Making Care was signed out by Dr. Alvarado with plan to follow-up on CT imaging. CT of the abdomen pelvis was interpreted by radiology: IMPRESSION: 1. Small bowel obstruction. There is a transition point in a left lower quadrant small bowel loop which is irregularly thick-walled, highly suspicious for an underlying annular constricting mass. 2. Findings suspicious for colitis with impending diarrhea. 3. Findings consistent with extensive metastatic malignancy; see discussion above. Patient reassessed and was resting. No active vomiting. Results discussed with the patient. I called [facility] transfer center and requested transfer. Transfer center notes limited capacity but does plan to accept the patient in transfer. Awaiting callback from accepting physician. 940 --I spoke with Dr. Foster, general surgeon at [facility], she knows the patient well, discussed ED presentation and course, she recommends NG tube be placed. She recommends transfer when bed available. She understands beds are not immediately available per transfer center. --Patient not tolerating initial attempt at NG tube placement. Requesting anxiolytic. Versed 1 mg IV to be given before reattempt. 1022 --I spoke with Dr. Pratt at [facility], on-call hospitalist medicine, discussed ED presentation course, he will except the patient in transfer. Unfortunately no bed available and anticipated next available be 24 hours for now. Plan to hospitalize here while awaiting transfer. I called and spoke with Dr. Fallon, on- call hospitalist, discussed ED presentation course and plan for transfer to [facility], he will accept the patient for admission. Care transitioned at time of admission. Lab Data Lab results reviewed: Yes I reviewed the patient's lab results. Labs: 02/21/23 06:09 Blood Blood Culture - Pending 02/21/23 06:09 Blood Blood Culture - Pending Laboratory Tests Range/Units 02/21/23 05:50 WBC (4.4-10.8) 10^3/uL 9.54 RBC (4.36-5.78) 10^6/uL 5.01 Hgb (13.5-17.5) g/dL 12.9 L Hct (40.0-50.0) % 37.9 L MCV (80-95) fL 76 L MCH (27.0-33.0) pg 25.7 L MCHC (32.0-36.0) % 34.0 RDW (11.8-14.1) % 12.3 Plt Count (130-400) 10^3/uL 395 MPV (8.0-11.0) fL 8.7 Immature Gran % 0.3 Neutrophils % 70.1 Lymphocytes % 13.8 Monocytes % 14.5 Eosinophils % 1.0 Basophils % 0.3 Nucleated RBC % (0.0-0.3) % 0.0 Absolute Neutrophils (1.2-6.7) 10^3/uL 6.68 Absolute Lymphocytes (1.2-3.4) 10^3/uL 1.32 Absolute Monocytes (0.1-0.8) 10^3/uL 1.38 H Absolute Eosinophils (0.0-0.7) 10^3/uL 0.10 Absolute Basophils (0.0-0.2) 10^3/uL 0.03 VBG Lactate (0.6-1.4) mmol/L 1.0 Sodium (136-145) mmol/L 134 L Potassium (3.5-5.1) mmol/L 3.7 Chloride (98-107) mmol/L 99 Carbon Dioxide (21.0-32.0) mmol/L 24.2 Anion Gap (3-11) mmol/L 10.8 BUN (7-18) mg/dL 11 Creatinine (0.70-1.30) mg/dL 1.0 Est GFR (CKD-EPI 2020) (mL/min/1.73m2) 96.37 Glucose (74-106) mg/dL 126 H Calcium (8.5-10.1) mg/dL 8.7 Total Bilirubin (0.2-1.0) mg/dL 0.4 AST (15-37) U/L 14 L ALT (16-63) U/L 22 Alkaline Phosphatase (46-116) U/L 76 Total Protein (6.4-8.2) g/dL 6.7 Albumin (3.4-5.0) g/dL 2.8 L Lipase (16-77) U/L 40 Sign Out Sign Out Data: Sign Out Comment: This is an unfortunate 42-year-old male recently diagnosed with 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 He presents today with 3 days of nausea vomiting and diarrhea. These symptoms were similar to his initial presentation and his diagnosis of recurrent disease on February 06. The patient's requested that we consult oncology at [facility] where he is followed. I have done so and he has had blood work which is reassuring and a CT of the abdomen and pelvis to rule out a recurrent partial small bowel obstruction. The plan is to discuss with departments after results of the CT scan and blood work. I have also ordered stool studies and IV fluids. The patient has not requested any analgesics Last updated by Evita Montes MD at 02/21/23 07:47 Discharge Plan Disposition Patient Disposition: Admit to [facility] Condition: Serious Discharge Details Clinical Impression: Colitis, SBO (small bowel obstruction) Admit Date/Time: 02/21/23 10:23 Admit Provider: Michael Fallon Attending Provider: Michael Fallon Primary Care Provider: Edwardo Bhakta ED Provider: Will Flores Discharge Data Discharge Date/Time-TO BE ENTERED AT DEPARTURE: 02/21/23 10:52
[2023-02-21 10:13] LABS: Bilirubin Negative (Negative); Blood Negative (Negative); Clarity Clear (Clear); Glucose Negative (Negative); Ketones Negative (Negative); Leukocyte Esterase Negative (Negative); Nitrite Negative (Negative); Specific Gravity <= 1.005 (1.005-1.025); Urobilinogen 0.2 mg/dL (Up to 0.2)
[2023-02-21] MEDS: Midazolam 2 MG/2 ML VIAL 1 MG IVP (10:17)
--- NOTE | 2023-02-21 10:23 | HPE_ITS ---
Date of service: 02/21/23 Time of Service: 10:26 Assessment and Plan Assessment and plan (1) SBO (small bowel obstruction): Status: Acute Assessment and plan: - Likely secondary to metastatic melanoma for which the patient is [place] [facility] [place] discussed with general surgery at [facility], recommended NG tube placement and n.p.o. -Patient has been accepted to transfer to medicine service with general surgery and oncology consultation, transfer likely next 24 hours -NG tube placement failed in the emergency department patient was set up to [facility] without NG tube in place (2) Metastasis from malignant melanoma of skin: Status: Acute Assessment and plan: -Likely secondary to constipation small bowel obstruction as noted above -Recently diagnosed with recurrent metastatic melanoma with known metastasis to the adrenals lungs and brain -Will have oncology consultation upon transfer to [facility] (3) Metastatic disease: Status: Acute History of Present Illness History of Present Illness Chief Complaint: 3 days of nausea vomiting and diarrhea Narrative: 42-year-old male with recurrent metastatic melanoma and recent hospitalization at [facility] for nonoperatively treated small bowel obstruction presents emergency department with 3 days of nausea vomiting and diarrhea. Patient states that similar symptoms when he presented last week was at [facility] for small bowel obstruction which time he is melanoma was found to have recurred. He was also found to have metastasis to the brain and lungs and adrenal glands recently had immunotherapy. States that he has abdominal pain and has been having diarrhea every hour but denies any blood in his stool, fever. States he took Zofran that provided minimal relief. In the emergency department the patient was noted to have normal vital signs, normal CBC, however CT abdomen pelvis showed small bowel obstruction with transition point in the left lower quadrant small bowel loop which is irregularly thick-walled highly suspicious for underlying annular constricting mass as well as colitis with impending diarrhea and findings consistent with extensive metastatic malignancy. Emergency room physician discussed the case with [facility] general surgeon Dr. Foster who recommended NG tube placement. Discussion was also had with hospitalist Dr. Pratt at [facility] who accepted the patient for transfer with general surgery and oncology consultations once a bed was available. At which time emergency room physician paged hospitalist for admission for patient with a small bowel obstruction secondary to metastatic melanoma with anticipated transfer to [facility] within the next 24 hours. Review of Systems All systems reviewed & are unremarkable except as noted in HPI and below PFSH All Active Problems Abdominal pain (Acute) Nausea & vomiting (Acute) Metastatic disease (Acute) SBO (small bowel obstruction) (Acute) 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 Sister No problems noted. Brother No problems noted. Son No problems noted. Paternal Grandfather , age 85 No problems noted. Paternal Grandmother , age 65ish Cancer Social History Smoking/Tobacco Use Status: Former Tobacco Use Second Hand Exposure: Yes Smoking risk assessment performed?: Yes Alcohol Intake: current Alcohol Intake frequency: a few times a week Alcohol type: beer, wine and hard liquor Drug use: Never Substance use type: unknown Caregiver/Support person: No Household members: spouse and children Housing: house Number of Children: 1 Communication Needs: None Do you need help understanding health information?: Rarely Pets and animals: Yes Sexually active: Yes Do you think of yourself as: straight/heterosexual Current gender identity: male What is your relationship status?: How often do you talk on the phone with friends or family?: three or more times per week How often do you get together with friends or relatives?: once per week How often do you attend baptism or jehovah's witness services?: decline to answer Do you belong to any clubs or organized social groups?: no Panel score (0-1 are the most socially isolated patients): 2 What type of physical activity do you participate in: decline to answer Duration: decline to answer Frequency: decline to answer Tamiko/Oriental Orthodox: None Special tamiko needs: No Seatbelt use: sometimes Helmet use: Yes Helmet use: sometimes Drive intox or ride w/intox bicycle taxi driver: No Water heater temp set <120 deg: Yes Working smoke detector in home: Yes Fire extinguisher in home: Yes Carbon monox detector in home: Yes Firearms in home: Yes Firearms unloaded and locked: Yes Do you feel safe at home: Yes Do you feel safe in your relationship?: Yes Meds Allergies and Home Medications Allergies Allergy/AdvReac Type Severity Reaction Status Date / Time pineapple Allergy Intermediate childhood Verified 02/21/23 05:43 allergy Home Medications Medication Instructions Recorded Confirmed Type Theragran-M Premier Caplet 1 tab PO DAILY 07/12/12 02/21/23 History cholecalciferol (vitamin D3) 25 1 cap PO DAILY 07/12/12 02/21/23 History mcg (1,000 unit) capsule omega-3 fatty acids-fish oil 300 1 cap PO DAILY 07/12/12 02/21/23 History mg-1,000 mg capsule acetylcysteine 600 mg capsule (NAC) 1,200 mg PO DAILY 05/27/22 02/21/23 History ascorbic acid (vitamin C) 500 mg 1,000 mg PO DAILY 05/27/22 02/21/23 History tablet niacin (inositol niacinate) 500 mg 1 cap PO DAILY 05/27/22 02/21/23 History capsule ondansetron 4 mg disintegrating 4 mg PO Q8H PRN nausea and 02/06/23 02/21/23 Rx tablet vomiting #20 tabs hydromorphone 2 mg tablet 2 mg PO Q4H PRN 02/17/23 02/21/23 History ibuprofen 600 mg tablet 600 mg PO Q8H PRN 02/17/23 02/21/23 History senna-docusate sodium tablet tab PO BID 02/17/23 History Exam Narrative Exam Narrative: Well-appearing gentleman sitting up in the bed in no acute distress, ANO x 4, heart regular rhythm, lungs clear to auscultation bilaterally, mild bilateral lower quadrant tenderness to palpation without rebound or guarding, minimal bowel sounds Results Labs 02/21/23 05:50 02/21/23 05:50 Labs: Laboratory Results - last 24 hr 02/21/23 02/21/23 05:50 10:04 WBC 9.54 RBC 5.01 Hgb 12.9 L Hct 37.9 L MCV 76 L MCH 25.7 L MCHC 34.0 RDW 12.3 Plt Count 395 MPV 8.7 Immature Gran % 0.3 Neutrophils % 70.1 Lymphocytes % 13.8 Monocytes % 14.5 Eosinophils % 1.0 Basophils % 0.3 Nucleated RBC % 0.0 Absolute Neutrophils 6.68 Absolute Lymphocytes 1.32 Absolute Monocytes 1.38 H Absolute Eosinophils 0.10 Absolute Basophils 0.03 VBG Lactate 1.0 Sodium 134 L Potassium 3.7 Chloride 99 Carbon Dioxide 24.2 Anion Gap 10.8 BUN 11 Creatinine 1.0 Est GFR (CKD-EPI 2020) 96.37 Glucose 126 H Calcium 8.7 Total Bilirubin 0.4 AST 14 L ALT 22 Alkaline Phosphatase 76 Total Protein 6.7 Albumin 2.8 L Lipase 40 Urine Color Yellow Urine Clarity Clear Urine pH 6.0 Ur Specific [place] <= 1.005 Urine Protein Negative Urine Ketones Negative Urine Blood Negative Urine Nitrite Negative Urine Bilirubin Negative Urine Urobilinogen 0.2 Ur Leukocyte Esterase Negative Urine Glucose Negative Last Vital Signs Temp 98.4 F 02/21/23 05:38 Pulse 85 02/21/23 06:16 Resp 17 02/21/23 06:20 BP 124/79 02/21/23 06:16 Pulse Ox 96 02/21/23 06:20 Time Spent Time spent with Patient: >75 minutes Time was spent: preparing to see the patient(eg.review tests), obtaining and/or reviewing separately otained hiistory, ordering medications,tests, procedures, referring, communicating with other health care consultant, indepentently interpreting results, counseling the patient and care coordination
--- NOTE | 2023-02-21 14:50 | NUR.NOTE ---
SQSS initiated at 1155. Pt arrived to [place] floor under the impression that he was just here while he awaits and ambulance ride to [facility]. was visibly upset stating that No one communicated to us that we were staying, NO ONE here is touch him. We were told not the leave the ER unless it was via ambulance to [facility] by [facility] oncology. CC's in to discuss the plan with patient and . After the had insisted that [facility] had admitted him. CC let MD Fallon and HS Vale know the communication issues and wifes concerns. Discussed plan of care in meeting. HS had called [facility] transfer center to confirm the bed status of this patient and was informed there was no bed available as of yet, but the patient has been accepted as of now. MD Fallon in to discuss plan going forward and reassured that once a bed becomes available he is happy to transfer the patient. again stated If we knew he would just be sitting here, I would have just driven him to [facility]. reiterated what the transfer center had stated If he comes, he would have to wait in the ED waiting room, before going to ED and still be waiting for a bed. Pt seemed to be in agreement at this time and CC had left the decision up to the and patient. approached Nurses station stating I just got off the phone with the Oncology Dr. Jeter, and he has a bed and he can go now. CC informed HS of the wifes statement. CC went in to patient room and asked for the phone number of the Dr the had been speaking with. CC then called Oncology center to inquire about patients transfer status. jewelry bearing maker called to say that according to the transfer center, the patient is accepted and awaiting a bed, there is not a bed available at this time but should be this afternoon. CC then informed the that [facility] was waiting for the [facility] transfer center to call to state they have a bed available and we can arrange transport. [employer] in to stop completed infusion, pt had mentioned Not to hang another bag, my my be taking me to [facility]. Have kept HS and MD in the loop. Awaiting call from [facility] transfer center. Nursing Note:
[2023-02-21] MEDS: ACETAMINOPHEN 1,000 MG/100 ML BTL 400 MG IVPB (16:53)
[2023-02-21] MEDS: Ondansetron 4 MG/2 ML VIAL IVP (20:24)
[2023-02-22] MEDS: ACETAMINOPHEN 1,000 MG/100 ML BTL 400 MG IVPB (00:52)
[2023-02-22 03:06] VITALS: BP 123/76; PULSE 87; RESP 16; TEMP 37; O2SAT 96
[2023-02-22 05:48] LABS: HCT 35.8 % (40.0-50.0); HGB 11.6 g/dL (13.5-17.5); MCH 25.3 pg (27.0-33.0); MCHC 32.4 % (32.0-36.0); MCV 78 fL (80-95); MPV 8.4 fL (8.0-11.0); Platelet Count 325 10^3/uL (130-400); RBC 4.59 10^6/uL (4.36-5.78); RDW 12.4 % (11.8-14.1); RDW-SD 35.2 fL; WBC 6.09 10^3/uL (4.4-10.8)
[2023-02-22 05:57] LABS: Anion Gap 8.2 mmol/L (3-11); BUN 11 mg/dL (7-18); CO2 24.8 mmol/L (21.0-32.0); Calcium 8.2 mg/dL (8.5-10.1); Chloride 105 mmol/L (98-107); Estimated GFR 96.37 (mL/min/1.73m2); Glucose 101 mg/dL (74-106); Magnesium 1.8 mg/dL (1.8-2.4); Potassium 3.7 mmol/L (3.5-5.1); Sodium 138 mmol/L (136-145)
[2023-02-22] MEDS: Normal Saline 1,000 ML 150 ML IV ×2 (06:17→12:57)
[2023-02-22 07:31] VITALS: BP 116/72; PULSE 79; RESP 16; TEMP 36.7; O2SAT 96
--- NOTE | 2023-02-22 10:15 | PDOC.CMIN ---
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 Sister No problems noted. Brother No problems noted. Son No problems noted. Paternal Grandfather , age 85 No problems noted. Paternal Grandmother , age 65ish Cancer Social History Smoking/Tobacco Use Status: Former Tobacco Use Second Hand Exposure: Yes Smoking risk assessment performed?: Yes Alcohol Intake: current Alcohol Intake frequency: a few times a week Alcohol type: beer, wine and hard liquor Drug use: Never Substance use type: unknown Caregiver/Support person: No Household members: spouse and children Housing: house Number of Children: 1 Communication Needs: None Do you need help understanding health information?: Rarely Pets and animals: Yes Sexually active: Yes Do you think of yourself as: straight/heterosexual Current gender identity: male What is your relationship status?: How often do you talk on the phone with friends or family?: three or more times per week How often do you get together with friends or relatives?: once per week How often do you attend caodaism or confucianism services?: decline to answer Do you belong to any clubs or organized social groups?: no Panel score (0-1 are the most socially isolated patients): 2 What type of physical activity do you participate in: decline to answer Duration: decline to answer Frequency: decline to answer Tamiko/Mosque: None Special tamiko needs: No Seatbelt use: sometimes Helmet use: Yes Helmet use: sometimes Drive intox 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
[2023-02-22 11:33] VITALS: BP 137/78; PULSE 91; RESP 17; TEMP 36.8; O2SAT 98
[2023-02-22] MEDS: Normal Saline Flush 10 ML SYR IVP (12:57)
[2023-02-22] MEDS: methylPREDNISolone SUCC 125 MG VIAL IVP (12:57)
[2023-02-22 15:17] VITALS: BP 115/75; PULSE 98; RESP 18; TEMP 37.6; O2SAT 98
--- NOTE | 2023-02-22 16:18 | W.PM.DS.N ---
Date of service: 02/22/23 Time of Service: 16:18 DS: Diagnosis Discharge Diagnosis (1) SBO (small bowel obstruction): Status: Acute Asessment and Plan: -Likely secondary to metastatic melanoma for which the patient is receiving treatment at [facility] -ED discussed with general surgery at [facility], recommended NG tube placement and n.p.o. -Patient has been accepted to transfer to medicine service with general surgery and oncology consultation, transfer likely next 24 hours -NG tube placement failed in the emergency department patient was set up to [facility] without NG tube in place -Patient began to have diarrhea early in the morning of 02/22/2023 -Was also given 125 mg IV Solu-Medrol around 1 PM 1223 as per oncology recommendation (2) Metastasis from malignant melanoma of skin: Status: Acute (3) Metastatic disease: Status: Acute Discharge Plan Disposition Patient Disposition: Transfer-Acute Inpatient Care Specific Acute Inpt Facility: [facility] Condition: Fair Discharge Details Reason For Visit: SBO Admit Date/Time: 02/21/23 10:23 Admit Provider: Michael Fallon Attending Provider: Michael Fallon Primary Care Provider: Edwardo Bhakta Hospital Course Hospital Course: Patient initially admitted with a small bowel obstruction potentially due to recurrent metastatic melanoma. Unable to place NG tube if patient remained n.p.o. and it did begin to have some loose stools early in the morning 02/22/2023. Additionally, the recommendation of oncology he was given 125 mg IV Solu-Medrol around 1 PM on the afternoon of 02/22/2023. Ultimately, patient was determined to be in good condition to be transferred to [facility]. Home Meds and New Rx's Prescriptions: No Action ascorbic acid (vitamin C) 500 mg tablet 1,000 mg PO DAILY Hold Instructions: immunotherapy niacin (inositol niacinate) 500 mg capsule 1 cap PO DAILY Hold Instructions: immunotherapy acetylcysteine [NAC] 600 mg capsule 1,200 mg PO DAILY Hold Instructions: immunotherapy cholecalciferol (vitamin D3) 1,000 UNIT capsule 1 cap PO DAILY Hold Instructions: immunotherapy omega-3 fatty acids-fish oil 1 EACH capsule 1 cap PO DAILY Hold Instructions: immunotherapy THERAGRAN-M PREMIER CAPLET 1 EACH tablet 1 tab PO DAILY Hold Instructions: immunotherapy hydromorphone 2 mg tablet 2 mg PO Q4H PRN Hold Instructions: immunotherapy ibuprofen 600 mg tablet 600 mg PO Q8H PRN Hold Instructions: immunotherapy senna-docusate sodium Tablet PO BID Hold Instructions: immunotherapy ondansetron 4 mg tablet,disintegrating 4 mg PO Q8H PRN (Reason: nausea and vomiting) Qty: 20 0RF Hold Instructions: immunotherapy Discharge Instructions Activity:: Activity as Tolerated Equipment/Supplies:: No Equipment Needed Diet:: NPO Discharge Orders Discharge Orders: Discharge Order (Routine); Ordered 02/22/23 Ordered By: Michael Fallon DS: Summary Time Spent with Patient providing and/or coordinating discharge services: Greater than 30 minutes Status at Discharge Functional status at discharge: independent ambulation Overall status at discharge: patient is not back to baseline Mental Status: mental status grossly normal Speech and Movement: speech and movement normal Mood: congruent mood Affect: normal affect Exam Narrative Exam Narrative: Well-appearing gentleman sitting up in the bed in no acute distress, ANO x 4, heart regular rhythm, lungs clear to auscultation bilaterally, mild bilateral lower quadrant tenderness to palpation without rebound or guarding, minimal bowel sounds Psych Mental Status: mental status grossly normal Speech and Movement: speech and movement normal Mood: congruent mood Affect: normal affect DS: Data Vitals/I&O Vitals and I&O: Vital Signs Temperature 99.7 F H 02/22/23 15:17 Temperature Source Tympanic 02/22/23 15:17 Pulse 98 H 02/22/23 15:17 Pulse Rhythm Regular 02/22/23 11:21 Pulse 116 H 02/21/23 10:40 Respiratory Rate 18 02/22/23 15:17 Respiratory Effort Normal, Non-Labored 02/22/23 11:21 Respiratory Depth Normal 02/22/23 11:21 Respiratory Pattern Normal 02/22/23 11:21 Blood Pressure 115/75 02/22/23 15:17 Blood Pressure Mean 90 02/21/23 09:46 Blood Pressure Position Supine 02/21/23 05:38 Pulse Oximetry 98 02/22/23 15:17 Oxygen Delivery Method Room Air 02/22/23 15:17 Oxygen Flow Rate 0 02/22/23 15:17 Pain Level 0 02/22/23 15:17 Intake & Output 02/21/23 02/22/23 02/22/23 17:59 05:59 17:59 Intake Total 1999.2006.5 Balance 1999. Weight 200 lb 13.458 oz Intake: IV 1999. Other: Comment Per patient voided in toilet pt up voiding independentky. Stool Size Small Stool Characteristics Liquid Liquid Brown Data Completed and Pending Labs on day of discharge: Labs from last 24 hours 02/22/23 02/21/23 05:35 20:38 WBC 6.09 RBC 4.59 Hgb 11.6 L Hct 35.8 L MCV 78 L MCH 25.3 L MCHC 32.4 RDW 12.4 Plt Count 325 MPV 8.4 Sodium 138 Potassium 3.7 Chloride 105 Carbon Dioxide 24.8 Anion Gap 8.2 BUN 11 Creatinine 1.0 Est GFR (CKD-EPI 2020) 96.37 Glucose 101 Calcium 8.2 L Magnesium 1.8 Stool Campylobacter PCR Pending Stool Salmonella PCR Pending Stool Shigella PCR Pending Shiga Toxin (PCR) Pending Preliminary micro results at discharge 02/21/23 06:09 Blood Culture - Preliminary Blood NO GROWTH 24 HOURS 02/21/23 06:09 Blood Culture - Preliminary Blood NO GROWTH 24 HOURS PFSH All Active Problems Abdominal pain (Acute) Nausea & vomiting (Acute) Metastatic disease (Acute) SBO (small bowel obstruction) (Acute) 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 Sister No problems noted. Brother No problems noted. Son No problems noted. Paternal Grandfather , age 85 No problems noted. Paternal Grandmother , age 65ish Cancer Social History Smoking/Tobacco Use Status: Former Tobacco Use Second Hand Exposure: Yes Smoking risk assessment performed?: Yes Alcohol Intake: current Alcohol Intake frequency: a few times a week Alcohol type: beer, wine and hard liquor Drug use: Never Substance use type: unknown Caregiver/Support person: No Household members: spouse and children Housing: house Number of Children: 1 Communication Needs: None Do you need help understanding health information?: Rarely Pets and animals: Yes Sexually active: Yes Do you think of yourself as: straight/heterosexual Current gender identity: male What is your relationship status?: How often do you talk on the phone with friends or family?: three or more times per week How often do you get together with friends or relatives?: once per week How often do you attend muslim or mosque services?: decline to answer Do you belong to any clubs or organized social groups?: no Panel score (0-1 are the most socially isolated patients): 2 What type of physical activity do you participate in: decline to answer Duration: decline to answer Frequency: decline to answer Tamiko/Christian: None Special tamiko needs: No Seatbelt use: sometimes Helmet use: Yes Helmet use: sometimes Drive intox or ride 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
--- NOTE | 2023-02-22 18:16 | NUR.NOTE ---
Nursing Note:Report given to [facility] at this time.
[2023-02-22 21:43] LABS: Campylobacter PCR Negative (Negative); Salmonella PCR Negative (Negative); Shiga Toxin PCR Negative (Negative); Shigella/Enteroinvasive Ecoli Negative (Negative)
== END 2023-02-22 17:42 | disposition short-term general hospital (02) | DRG 389 ==
LOC: ER 08:25 → MS 10:55
PROVIDERS: Emergency Medicine Emergency Medical Services; Admitting Provider Family Medicine; Emergency Provider Student in an Organized Health Care Education/Training Program; PCP Family Medicine; Visit Provider Family Medicine
DX: K56.609 Unspecified intestinal obstruction, unspecified as to partial versus complete obstruction; C77.9 Secondary and unspecified malignant neoplasm of lymph node, unspecified; C78.4 Secondary malignant neoplasm of small intestine; C78.01 Secondary malignant neoplasm of right lung; C78.02 Secondary malignant neoplasm of left lung; C79.31 Secondary malignant neoplasm of brain; C79.72 Secondary malignant neoplasm of left adrenal gland; C79.71 Secondary malignant neoplasm of right adrenal gland; K59.09 Other constipation; R10.9 Unspecified abdominal pain; R11.2 Nausea with vomiting, unspecified; E78.5 Hyperlipidemia, unspecified; F10.90 Alcohol use, unspecified, uncomplicated; L71.9 Rosacea, unspecified; Z85.820 Personal history of malignant melanoma of skin
CPT/HCPCS: 00123; 36415; 80048; 80053; 83690; 85027; 87040; 87505; 96361; 96374; 99285; 74177; 81003; 83605; 83735; 85025; 99223; 99239; J0131; J2250; J2405; J2930; J3490

== ENCOUNTER 2023-03-09 19:03 | Outpatient (CLI) | payer BC, SELFPAY ==
[2023-03-09 11:18] LABS: Abs Immature Grans 0.02 10^3/uL (0.0-0.06); HCT 37.4 % (40.0-50.0); HGB 11.8 g/dL (13.5-17.5); MCH 24.6 pg (27.0-33.0); MCHC 31.6 % (32.0-36.0); MCV 78 fL (80-95); MPV 10.6 fL (8.0-11.0); Neutrophils % 71.4; RDW-SD 39.7 fL; WBC 3.92 10^3/uL (4.4-10.8)
[2023-03-09 11:38] LABS: Absolute Basophil Count 0.04 10^3/uL (0.0-0.2); Absolute Eosinophil Count 0.04 10^3/uL (0.0-0.7); Absolute Lymphocyte Count 0.78 10^3/uL (1.2-3.4); Absolute Monocyte Count 0.12 10^3/uL (0.1-0.8); Absolute Neutrophil Count 5.74 10^3/uL (1.2-6.7); Atypical Lymphocytes % 1; Bands % 75
[2023-03-09 11:39] LABS: Diff Comment Manual Differential; Platelet Count 95 10^3/uL (130-400); RBC Morphology Normal
[2023-03-09 11:40] LABS: ALT 668 U/L (16-63); Albumin 2.8 g/dL (3.4-5.0); Alkaline Phosphatase 411 U/L (46-116); Anion Gap 8.7 mmol/L (3-11); BUN 10 mg/dL (7-18); CO2 28.3 mmol/L (21.0-32.0); CREATININE 0.9 mg/dL (0.70-1.30); Calcium 8.7 mg/dL (8.5-10.1); Chloride 97 mmol/L (98-107); Estimated GFR 109.36 (mL/min/1.73m2); FREE T4 1.16 ng/dL (0.76-1.46); Glucose 145 mg/dL (74-106); Potassium 3.5 mmol/L (3.5-5.1); Sodium 134 mmol/L (136-145); TSH 1.78 uIU/mL (0.36-3.74)
[2023-03-09 11:41] LABS: AST 870 U/L (15-37); LDH 1355 U/L (85-227)
== END 2023-03-09 19:04 | disposition home or self-care (01) ==
LOC: LBO 19:03
PROVIDERS: PCP Family Medicine; Visit Provider Internal Medicine Hospice and Palliative Medicine
DX: C79.89 Secondary malignant neoplasm of other specified sites (principal); C79.31 Secondary malignant neoplasm of brain; Z79.899 Other long term (current) drug therapy; Z85.820 Personal history of malignant melanoma of skin; C78.01 Secondary malignant neoplasm of right lung; C78.02 Secondary malignant neoplasm of left lung
CPT/HCPCS: 36415; 80053; 83615; 84439; 84443; 85025

== ENCOUNTER 2023-03-11 02:50 | Outpatient (CLI) | payer BC, SELFPAY ==
[2023-03-11 09:17] LABS: Abs Immature Grans 0.16 10^3/uL (0.0-0.06); HCT 35.3 % (40.0-50.0); HGB 11.3 g/dL (13.5-17.5); MCH 24.9 pg (27.0-33.0); MCV 78 fL (80-95); MPV 10.6 fL (8.0-11.0); Platelet Count 212 10^3/uL (130-400); RBC 4.53 10^6/uL (4.36-5.78); RDW 14.5 % (11.8-14.1); RDW-SD 40.7 fL; WBC 8.99 10^3/uL (4.4-10.8)
[2023-03-11 09:28] LABS: Prothrombin Time 9.7 sec (9.1-11.1)
[2023-03-11 09:33] LABS: Albumin 2.8 g/dL (3.4-5.0); BUN 16 mg/dL (7-18); Bilirubin, Total 0.4 mg/dL (0.2-1.0); CREATININE 0.8 mg/dL (0.70-1.30); Chloride 97 mmol/L (98-107); Estimated GFR 113.32 (mL/min/1.73m2); LDH 821 U/L (85-227); Potassium 3.3 mmol/L (3.5-5.1); Sodium 135 mmol/L (136-145); Total Protein 6.9 g/dL (6.4-8.2)
[2023-03-11 09:47] LABS: Absolute Basophil Count 0.09 10^3/uL (0.0-0.2); Absolute Eosinophil Count 0.09 10^3/uL (0.0-0.7); Absolute Monocyte Count 0.72 10^3/uL (0.1-0.8); Absolute Neutrophil Count 5.39 10^3/uL (1.2-6.7); Atypical Lymphocytes % 4
[2023-03-11 09:48] LABS: Diff Comment Manual Differential; Polychromasia Present
[2023-03-11 09:52] LABS: AST 760 U/L (15-37); Alkaline Phosphatase 405 U/L (46-116); Anion Gap 10.9 mmol/L (3-11); CO2 27.1 mmol/L (21.0-32.0); Calcium 9.2 mg/dL (8.5-10.1); Glucose 178 mg/dL (74-106)
[2023-03-11 10:05] LABS: ALT 957 U/L (16-63)
== END 2023-03-11 02:51 | disposition home or self-care (01) ==
LOC: LBO 02:50
PROVIDERS: PCP Family Medicine; Visit Provider Internal Medicine Hospice and Palliative Medicine
DX: C43.9 Malignant melanoma of skin, unspecified (principal); R74.8 Abnormal levels of other serum enzymes; C77.9 Secondary and unspecified malignant neoplasm of lymph node, unspecified; Z79.899 Other long term (current) drug therapy
CPT/HCPCS: 36415; 80053; 83615; 85025; 85610

== ENCOUNTER 2023-03-14 05:24 | Outpatient (CLI) | payer BC, SELFPAY ==
[2023-03-14 09:34] LABS: ALT 537 U/L (16-63); Alkaline Phosphatase 275 U/L (46-116); Anion Gap 5.3 mmol/L (3-11); BUN 20 mg/dL (7-18); Bilirubin, Total 0.4 mg/dL (0.2-1.0); CO2 31.7 mmol/L (21.0-32.0); CREATININE 0.8 mg/dL (0.70-1.30); Calcium 9.5 mg/dL (8.5-10.1); Chloride 99 mmol/L (98-107); Estimated GFR 113.32 (mL/min/1.73m2); Glucose 150 mg/dL (74-106); LDH 355 U/L (85-227); Sodium 136 mmol/L (136-145); Total Protein 7.2 g/dL (6.4-8.2)
[2023-03-14 10:09] LABS: AST 77 U/L (15-37)
== END 2023-03-14 05:25 | disposition home or self-care (01) ==
LOC: LBO 05:25
PROVIDERS: PCP Family Medicine; Visit Provider Internal Medicine Hospice and Palliative Medicine
DX: C43.9 Malignant melanoma of skin, unspecified (principal)
CPT/HCPCS: 36415; 80053; 83615

== ENCOUNTER 2023-03-17 03:51 | Outpatient (CLI) | payer BC, SELFPAY ==
[2023-03-17 09:19] LABS: Abs Immature Grans 0.09 10^3/uL (0.0-0.06); Absolute Basophil Count 0.02 10^3/uL (0.0-0.2); Absolute Lymphocyte Count 0.71 10^3/uL (1.2-3.4); Absolute Monocyte Count 0.46 10^3/uL (0.1-0.8); Absolute Neutrophil Count 8.93 10^3/uL (1.2-6.7); Basophils % 0.2; HCT 37.1 % (40.0-50.0); HGB 11.5 g/dL (13.5-17.5); Immature Grans % 0.9; MCH 24.3 pg (27.0-33.0); MCV 78 fL (80-95); Monocytes % 4.5; Neutrophils % 87.4; Platelet Count 352 10^3/uL (130-400); RBC 4.74 10^6/uL (4.36-5.78); RDW 15.6 % (11.8-14.1); RDW-SD 43.3 fL; WBC 10.21 10^3/uL (4.4-10.8)
[2023-03-17 09:31] LABS: Prothrombin Time 9.9 sec (9.1-11.1)
[2023-03-17 09:33] LABS: ALT 216 U/L (16-63); AST 56 U/L (15-37); Albumin 2.9 g/dL (3.4-5.0); Alkaline Phosphatase 187 U/L (46-116); Anion Gap 5.4 mmol/L (3-11); BUN 27 mg/dL (7-18); Bilirubin, Total 0.4 mg/dL (0.2-1.0); CO2 26.6 mmol/L (21.0-32.0); CREATININE 0.9 mg/dL (0.70-1.30); Calcium 8.8 mg/dL (8.5-10.1); Chloride 96 mmol/L (98-107); Estimated GFR 109.36 (mL/min/1.73m2); Glucose 130 mg/dL (74-106); LDH 385 U/L (85-227); Potassium 4.4 mmol/L (3.5-5.1); Sodium 128 mmol/L (136-145); Total Protein 6.9 g/dL (6.4-8.2)
[2023-03-17 13:43] LABS: TSH 1.46 uIU/mL (0.36-3.74)
== END 2023-03-17 03:52 | disposition home or self-care (01) ==
LOC: LBO 03:51
PROVIDERS: PCP Family Medicine; Visit Provider Internal Medicine Hospice and Palliative Medicine
DX: C43.9 Malignant melanoma of skin, unspecified (principal); R74.8 Abnormal levels of other serum enzymes
CPT/HCPCS: 36415; 80053; 83615; 84439; 84443; 85025; 85610

== ENCOUNTER 2023-03-18 11:20 | Emergency (ER) | payer BC, SELFPAY ==
[2023-03-18] VITALS (14 sets, daily range): BP systolic 118–141; BP diastolic 78–87; PULSE 102–112; RESP 14–27; TEMP 37.1; O2SAT 87–95
--- NOTE | 2023-03-18 11:30 | DI.CT_ITS ---
Exam(s) CT HEAD - STROKE PROTOCOL EXAM: CT HEAD - STROKE PROTOCOL CLINICAL HISTORY: Slurred speech, brain mets. TECHNIQUE: Imaging Protocol: Axial computed tomography images with coronal and sagittal reformatted images were created and reviewed COMPARISON: CT CT HEAD W from 02/06/2023 FINDINGS: Ventricles and Extra axial spaces: Normal in size and morphology for the patient's age. Hemorrhage: Please see below under cerebral parenchyma. Cerebral parenchyma: There again seen multiple hyperdense masses intracranially consistent with metas tatic disease. There are areas of edema associated with several of the masses. These have shown int erval increase in size. The left frontal mass now measures 1.7 cm compared to 0.9 cm. (Series 2, im age 33). There is a right frontal mass which measures 1.2 cm (series 2, image 19) compared to 1 cm o n the prior examination. There is also now a large area of hemorrhage in the right parietal lobe lina suring 3.1 x 3.2 cm with associated mass effect. There is effacement of the adjacent right lateral v entricle and 2-3 mm leftward shift of the midline as a result of the hemorrhage. There may also be a n increase in number of intracranial metastases since the prior examination. Midline shift: 2-3 mm leftward shift of the midline as a result of the right parietal hemorrhage. Brainstem/Cerebellum: The right cerebellar metastasis is difficult to visualize without contrast. Calvarium: Normal. Visualized Paranasal sinuses/Mastoids: Clear. Soft Tissues: Unremarkable. IMPRESSION: 1. New intraparenchymal hemorrhagic metastasis in the right parietal lobe measuring 3.1 x 3.2 cm. Th ere is associated mass effect on the right lateral ventricle and a 2-3 mm leftward shift of the midli ne as result of the hemorrhage. 2. Interval increase in size, and probably number, of the intracranial metastases since 02/06/2023. 3. Findings were discussed with Gallo Walters at 11:50 a.m. on 03/18/2023. RADIATION DOSE DELIVERED: 829.78mGy.cm Total DLP DATA REPOSITORY: All CT scans at this facility are submitted to the National Radiology Data Registry (NRDR) Dose Index Registry (DIR) with the [employer] ([employer]). RADIATION OPTIMIZATION: All CT scans at this facility use at least one of these dose optimization te chniques: automated exposure control; mA and/or kV adjustment per patient size (includes targeted exa ms where dose is matched to clinical indication); or iterative reconstruction.
--- NOTE | 2023-03-18 11:30 | RT.EKG_ITS ---
APPROVED REPORT Exam: Resting ECG Reason for Exam: Slurred speech, left shoulder pain Patient Location: E HR:114 bpm ECG Measurements Heart Rate 114 AXIS VT 135 P 49 QRSd 89 QRS 10 QT 305 T 32 QTc 420 Conclusion Sinus tachycardia...rate> 99 Sinus tachycardia. WD
--- NOTE | 2023-03-18 12:00 | DI.RAD_ITS ---
Exam(s) XR CHEST 2V PA LATERAL EXAM: XR CHEST 2V PA LATERAL CLINICAL HISTORY: Left shoulder pain, slurred speech TECHNIQUE: 2D digital imaging was performed of the chest. Two images were obtained. PA and lateral views were obtained. COMPARISON: No exams were available for comparison FINDINGS: MEDIASTINUM: Normal. HEART: Normal. PULMONARY VASCULATURE: Normal. LUNGS: There are numerous pulmonary nodules consistent with metastatic disease. No focal consolidati ng infiltrates. PLEURAL SPACE: No pleural effusion or pneumothorax. BONE:Within normal limits for the patient's age. OTHER FINDINGS:Normal. IMPRESSION: 1. Diffuse pulmonary metastatic disease. 2. No focal pulmonary infiltrates. DATA REPOSITORY: RADIATION DOSE DELIVERED:
[2023-03-18 12:14] LABS: Abs Immature Grans 0.03 10^3/uL (0.0-0.06); Absolute Basophil Count 0.01 10^3/uL (0.0-0.2); Absolute Lymphocyte Count 0.71 10^3/uL (1.2-3.4); Absolute Monocyte Count 0.15 10^3/uL (0.1-0.8); Basophils % 0.1; HCT 38.1 % (40.0-50.0); HGB 11.8 g/dL (13.5-17.5); Immature Grans % 0.4; Lymphocytes % 10.6; MCH 24.1 pg (27.0-33.0); MCV 78 fL (80-95); MPV 9.1 fL (8.0-11.0); Monocytes % 2.2; Neutrophils % 86.7; Platelet Count 332 10^3/uL (130-400); RDW 15.3 % (11.8-14.1); RDW-SD 42.5 fL
[2023-03-18 12:31] LABS: PTT Activated 22.9 sec (23.6-32.8)
[2023-03-18 12:40] LABS: ALT 197 U/L (16-63); AST 87 U/L (15-37); Alkaline Phosphatase 176 U/L (46-116); Anion Gap 11.1 mmol/L (3-11); BUN 21 mg/dL (7-18); Bilirubin, Total 0.5 mg/dL (0.2-1.0); CO2 24.9 mmol/L (21.0-32.0); Calcium 8.7 mg/dL (8.5-10.1); Chloride 95 mmol/L (98-107); Estimated GFR 96.37 (mL/min/1.73m2); Glucose 139 mg/dL (74-106); Magnesium 2.3 mg/dL (1.8-2.4); NT-proBNP 38 pg/mL (<300); Potassium 4.6 mmol/L (3.5-5.1); Sodium 131 mmol/L (136-145); Troponin I < 50 ng/L (< or =60)
[2023-03-18] MEDS: Normal Saline Flush 10 ML SYR IVP (13:29)
--- NOTE | 2023-03-18 14:13 | W.ED.GENAD ---
HPI General Stated Complaint: CVA/TIA Mode of arrival: ambulatory. JEZ: 3 Date/Time Provider Initiated Documentation: 03/18/23 11:35. Limitations to Documentation: no limitations. Information obtained by: patient and family. HPI Narrative: This is a 42-year-old gentleman who presents to the ER via private vehicle with his with a past medical history of malignant melanoma which has metastasized to the brain, lungs, GI system. He states that yesterday evening he developed some left shoulder pain, atraumatic, does seem to be underneath his shoulder blade. He did not radiate anywhere. He also states that he seemed to be more anxious than usual. He did not do any specific treatment for his shoulder pain and it resolved spontaneously. He went to bed in the evening and states that he awoke around midnight feeling strange, a dull global headache, and felt as though his left hand was asleep. The sensation did not change with movement or position. He then went back to sleep and upon waking early this morning states that his hand still felt the same and now slightly weak. Headache was unchanged. Also questions subtle difficulty speaking, slurred speech. He did not notice any facial weakness. He denies any lower extremity weakness whatsoever. His states that this progressively got worse throughout the morning and between 7 and 8 AM she contacted his oncologist at [facility]. He recommended taking an additional 60 mg of p.o. prednisone and going to the nearest ER for evaluation of left-sided deficits. Patient and family both state that they would have rather driven directly to [facility] ER but were advised against this. He does not believe that there has been any significant change or progression of his symptoms since about 7-8 AM this morning. Patient has a palliative care appointment set up with GI given his metastases to the GI system. Patient is currently undergoing immunotherapy and states that the second regimen caused significant elevation of his LFTs and he is now taking steroids, typically 60 mg daily but as noted above he did take 120 mg total today. Denies recent illness, trauma, striking his head, chest pain or shortness of breath. Denies swelling of either leg. Related Data Home Medications Medication Instructions Recorded Confirmed Theragran-M Premier Caplet 1 tab PO DAILY 07/12/12 03/18/23 cholecalciferol (vitamin D3) 25 1 cap PO DAILY 07/12/12 03/18/23 mcg (1,000 unit) capsule omega-3 fatty acids-fish oil 300 1 cap PO DAILY 07/12/12 03/18/23 mg-1,000 mg capsule acetylcysteine 600 mg capsule (NAC) 1,200 mg PO DAILY 05/27/22 03/18/23 ascorbic acid (vitamin C) 500 mg 1,000 mg PO DAILY 05/27/22 03/18/23 tablet niacin (inositol niacinate) 500 mg 1 cap PO DAILY 05/27/22 03/18/23 capsule ondansetron 4 mg disintegrating 4 mg PO Q8H PRN nausea and 02/06/23 03/18/23 tablet vomiting #20 tabs hydromorphone 2 mg tablet 2 mg PO Q4H PRN 02/17/23 03/18/23 ibuprofen 600 mg tablet 600 mg PO Q8H PRN 02/17/23 03/18/23 senna-docusate sodium tablet 1 tab PO BID 02/17/23 03/18/23 Previous Rx's Medication Instructions Recorded ondansetron 4 mg disintegrating 4 mg PO Q8H PRN nausea and 02/06/23 tablet vomiting #20 tabs Allergies Allergy/AdvReac Type Severity Reaction Status Date / Time pineapple Allergy Intermediate childhood Verified 02/21/23 05:43 allergy Review of Systems Constitutional Constitutional: Reports fatigue, Denies fever(s), Reports headache(s) and Reports weakness Eyes Eyes: Denies change in vision and Denies loss of vision ENT Ears, Nose, Mouth, and Throat: Denies dizziness, Reports headache(s) and Denies neck pain Cardiovascular Cardiovascular: Denies chest pain, Denies leg edema and Denies dyspnea Respiratory Respiratory: Denies dyspnea Gastrointestinal Gastrointestinal: Denies abdominal pain, Denies nausea and Denies vomiting Genitourinary Genitourinary: Denies difficulty urinating Musculoskeletal Musculoskeletal: Reports muscle weakness, Denies neck pain, Denies numbness and Reports tingling Integumentary/Breasts Skin/Breast: Denies rash Neurologic Neurologic: Denies dizziness, Reports headache(s), Reports localized weakness, Denies loss of vision, Denies numbness, Denies seizure-like activity, Denies sensory deficit, Reports tingling, Reports paresthesias and Reports weakness Psychiatric Psychiatric: Reports anxiety Endocrine Endocrine: Reports fatigue Hematologic/Lymphatic Hematologic/Lymphatic: Denies easy bleeding and Denies easy bruising PFSH All Active Problems (Updated 03/20/23 @ 13:52 by GLENNA Tubbs) Intracranial hemorrhage (Acute) Colitis (Acute) Abdominal pain (Acute) Nausea & vomiting (Acute) Metastatic disease (Acute) SBO (small bowel obstruction) (Acute) 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 Sister No problems noted. Brother No problems noted. Son No problems noted. Paternal Grandfather , age 85 No problems noted. Paternal Grandmother , age 65ish Cancer Social History Smoking/Tobacco Use Status: Former Tobacco Use Second Hand Exposure: Yes Smoking risk assessment performed?: Yes Alcohol Intake: current Alcohol Intake frequency: a few times a week Alcohol type: beer, wine and hard liquor Drug use: Never Substance use type: unknown Caregiver/Support person: No Household members: spouse and children Housing: house Number of Children: 1 Communication Needs: None Do you need help understanding health information?: Rarely Pets and animals: Yes Sexually active: Yes Do you think of yourself as: straight/heterosexual Current gender identity: male What is your relationship status?: How often do you talk on the phone with friends or family?: three or more times per week How often do you get together with friends or relatives?: once per week How often do you attend restorationist or taoist services?: decline to answer Do you belong to any clubs or organized social groups?: no Panel score (0-1 are the most socially isolated patients): 2 What type of physical activity do you participate in: decline to answer Duration: decline to answer Frequency: decline to answer Tamiko/Samaritan: None Special tamiko needs: No Seatbelt use: sometimes Helmet use: Yes Helmet use: sometimes Drive intox or ride w/intox company tanker truck driver: No Water heater temp set <120 deg: Yes Working smoke detector in home: Yes Fire extinguisher in home: Yes Carbon monox detector in home: Yes Firearms in home: Yes Firearms unloaded and locked: Yes Do you feel safe at home: Yes Do you feel safe in your relationship?: Yes Exam Const General: cooperative, comfortable, no acute distress and anxious Orientation: alert, awake and oriented x3 HENMT Head: normal to inspection, normocephalic and atraumatic Face and sinus: normal facial exam Mouth: moist mucous membranes Throat: posterior oropharynx normal Eyes General: appearance normal, both eyes and all related structures Alignment and Position: alignment normal Periorbital: periorbital findings normal Eyelids: eyelids normal Conjunctivae: conjunctivae normal Sclera: sclerae normal Cornea: corneas normal Pupils: PERRL EOM: EOM intact bilaterally Direct ophthalmoscopy: normal light reflex Neck Neck: normal visual inspection, full ROM, trachea midline and supple Resp Effort & Inspection: normal respiratory effort and able to speak in complete sentences Auscultation: clear to auscultation bilaterally Cardio Rate: tachycardic (110) Rhythm: regular rhythm GI Inspection: normal to inspection Palpation: soft, not firm, no guarding, not rigid and nontender Auscultation: normal bowel sounds Back/Spine/Pelvis Back: no CVA tenderness and No back tenderness Skin Rashes: rash noted Neuro General: patient alert, patient awake, patient oriented x3 and moves all extremities Cranial Nerves: no nystagmus, tongue midline and other (No obvious drooping but left-sided asymmetry when smiling) Cognition: normal cognition Speech: abnormal speech slurred (Minimal) Gait: normal gait Motor: no pronator drift, no fasciculations and other (Left grinder machine setter strength 4-5, right 5-5.) Sensory Exam: no sensory deficits noted Coordination: [id number] test normal, [id number] test normal, Does not sway with eyes open and rapid alternating movement UE normal Extrem General: normal to inspection, full ROM, capillary refill normal, no pedal edema and no calf tenderness Psych Appearance: grossly normal Mental Status: mental status grossly normal Course Vital Signs Vital signs: Vital Signs Temperature 37.1 C 03/18/23 11:31 Pulse 112 H 03/18/23 11:31 Respiratory Rate 16 03/18/23 11:31 Blood Pressure 141/87 H 03/18/23 11:31 Pulse Oximetry 93 03/18/23 11:31 Temperature 37.1 C 03/18/23 11:31 Temperature Source Oral 03/18/23 11:31 Pulse 107 H 03/18/23 13:31 Pulse 103 H 03/18/23 13:50 Respiratory Rate 24 03/18/23 13:50 Respiratory Effort Normal 03/18/23 12:00 Respiratory Depth Normal 03/18/23 12:00 Respiratory Pattern Normal 03/18/23 12:00 Blood Pressure 118/79 03/18/23 13:45 Blood Pressure Mean 92 03/18/23 13:45 Pulse Oximetry 95 03/18/23 13:50 Oxygen Delivery Method Room Air 03/18/23 11:31 Oxygen Flow Rate 0 03/18/23 11:31 Pain Level 3 03/18/23 11:31 Comment headache 03/18/23 11:31 Lab/Test Results Lab/Test Results: Laboratory Tests Range/Units 03/18/23 12:06 WBC (4.4-10.8) 10^3/uL 6.70 RBC (4.36-5.78) 10^6/uL 4.90 Hgb (13.5-17.5) g/dL 11.8 L Hct (40.0-50.0) % 38.1 L MCV (80-95) fL 78 L MCH (27.0-33.0) pg 24.1 L MCHC (32.0-36.0) % 31.0 L RDW (11.8-14.1) % 15.3 H Plt Count (130-400) 10^3/uL 332 MPV (8.0-11.0) fL 9.1 Immature Gran % 0.4 Neutrophils % 86.7 Lymphocytes % 10.6 Monocytes % 2.2 Eosinophils % 0.0 Basophils % 0.1 Nucleated RBC % (0.0-0.3) % 0.0 Absolute Neutrophils (1.2-6.7) 10^3/uL 5.80 Absolute Lymphocytes (1.2-3.4) 10^3/uL 0.71 L Absolute Monocytes (0.1-0.8) 10^3/uL 0.15 Absolute Eosinophils (0.0-0.7) 10^3/uL 0.00 Absolute Basophils (0.0-0.2) 10^3/uL 0.01 PT (9.1-11.1) sec 10.0 INR (0.9-1.1) 1.0 APTT (23.6-32.8) sec 22.9 L Sodium (136-145) mmol/L 131 L Potassium (3.5-5.1) mmol/L 4.6 Chloride (98-107) mmol/L 95 L Carbon Dioxide (21.0-32.0) mmol/L 24.9 Anion Gap (3-11) mmol/L 11.1 H BUN (7-18) mg/dL 21 H Creatinine (0.70-1.30) mg/dL 1.0 Est GFR (CKD-EPI 2020) (mL/min/1.73m2) 96.37 Glucose (74-106) mg/dL 139 H Calcium (8.5-10.1) mg/dL 8.7 Magnesium (1.8-2.4) mg/dL 2.3 Total Bilirubin (0.2-1.0) mg/dL 0.5 AST (15-37) U/L 87 H ALT (16-63) U/L 197 H Alkaline Phosphatase (46-116) U/L 176 H Troponin I (< or =60) ng/L < 50 NT-Pro-B Natriuret Pep (<300) pg/mL 38 Total Protein (6.4-8.2) g/dL 7.0 Albumin (3.4-5.0) g/dL 3.0 L Medical Decision Making This is a 42-year-old gentleman with metastatic malignant melanoma presenting with his for overall not feeling well, left shoulder pain that began yesterday, has completely resolved, and neurologic deficits such as left hand weakness, slightly slurred speech and facial asymmetry that began approximately 12 hours ago. No other neurologic deficits noted on my examination. Patient is anxious, presents with mild tachycardia and blood pressure of 141/87. He is awake, alert, oriented x 3, protecting airway without difficulty. Given his vague left shoulder pain yesterday, will initiate a cardiac workup as well as obtaining an emergent stroke protocol head CT given his left-sided weakness. Will monitor his blood pressure carefully as well as plan to provide serial neurologic examination. The patient's asks if we can already initiate a transfer to [facility]; however, I explained to her that I would need some additional information before able to do so. But as soon as I had information regarding his laboratory values or potential abnormal head CT, those images would be transmitted to [facility] and I would request a consult and transfer if appropriate. At approximately 11:50 AM I received a call from radiology stating that the patient had multiple metastasis to the brain which were larger than before, there is a hemorrhage from 1 of these masses in the right parietal lobe which measured approximately 3.1 x 3.2 cm with positive mass effect on the ventricle. Case was immediately discussed with Dr. Chan, initiated 1.5 g IV Keppra. Images were pushed to [facility] and I requested a neurosurgery consult and transfer. I made the patient and his aware of these findings and my plan to provide Keppra for seizure prophylaxis as well as my intentions to transfer to neurosurgery. At this time on the monitor, blood pressure was 124/79. Will continue to monitor blood pressure carefully, no need for blood pressure control at this time. Neurologic exam is unchanged, no progression of symptoms. I received a call from [facility] at 1251, I spoke with Dr. Laughlin and Dr. Euceda, neurosurgery. They did not have any additional recommendations regarding medications as the patient already received 1.5 g IV Keppra. Did recommend continue to monitor blood pressure and treat if necessary. They recommended a repeat head CT in about 6 hours and then the patient would likely need an MRI as well. Initially they recommended holding the patient in our ER for 6 hours to obtain that CT. I have voiced my concern that the patient could very well decompensate, and we do not have neurosurgery, neurology, oncology, interventional radiology, etc. even if the CT was unchanged in 6 hours, the patient would still not be appropriate for a critical access oral healthcare facility and transfer to a higher level of care would still be requested. They understood this and unfortunately states that at this time there are no beds available but given the patient already is established at their facility they would reach out to their station superintendent medical laboratory manager to attempt to accept the patient in transfer. I made the patient and family aware of the current recommendations and awaiting clear direction on potential transfer. I did make it very clear that if [facility] is unable to except the patient in transfer I would likely begin expanding my search, first to [facility]. In the meantime I was able to review his chest x-ray which shows diffuse metastatic disease, no acute pulmonary infiltrates. Blood pressure 125/78 at 1301. 129/79 at 1331 118/79 at 1345 Laboratory values were reviewed, elevated LFTs noted, sodium of 131, potassium 4.6 chloride 96 5, anion gap 11.1 BUN 21, GFR greater than 60, creatinine 1.0, white blood cell count 6.70, hemoglobin 11.8 hematocrit 38.[address] order for to 50 cc normal saline per hour maintenance fluids. I received a call from [facility] transport center at 1357 stating that they were not able to accept the patient in transfer. They stated that we could contact them later today or tomorrow morning to see if their status has changed. I then spoke with both the patient and his family once again regarding my most recent discussion with the [facility] transport team. He remains normotensive. Heart rate now 107. His symptoms have not changed. At this time they do not wish to begin the transfer process to [facility]. They state that they are going to drive personally to the [facility] ER, which they wish they had done from the beginning. I explained to them that I do not recommend this, he has a intracranial hemorrhage secondary to a metastasis which if it begins to expand he could decompensate very rapidly. I recommended boarding in my ER for close monitoring of his blood pressure and serial neurologic examinations and I would find a higher level of care to transfer the patient to. They understand and appreciate this but declined. They have elected to leave [facility]. They tell me that they have already been in contact with their oncologist at [facility] and have made that team aware that they will be leaving this ER AMA and driving directly to the [facility] ER. Patient appears clinically sober, is of sound mind, and based upon my clinical examination has the capacity to make their own decisions. We have offered treatment options and discussed the the risks and benefits of these options and refusing these options, including and/or disability specific to the patient's pathology. Pt is able to discuss and understands the risks and benefits and alternatives of treatment and refusing treatment. We have tried to involve the patient's family that was present. The patient still chooses to leave before evaluation and treatment can be completed AGAINST MEDICAL ADVICE. AMA paperwork signed. I did reach out to the [facility] ER at 1421, able to speak with Dr. Levin to make them aware of this potentially critically ill patient leaving my ER AMA to present to their facility. I did explain to him that this was not a official transfer, the patient would not be arriving with any transfer paperwork. I did let him know that the patient already is established with the oncology team at [facility] and I have already spoken with neurosurgery regarding the patient's presentation and need for transfer. Standard discharge and return precautions were provided. Patient understands, is agreeable to this plan, and has no additional questions or concerns upon discharge. This documentation was generated using [employer] system, please disregard any oddities of phrase or misspellings. Medical Records Medical records reviewed: Yes I reviewed the patient's medical records. Imaging Data Radiologic Study: Attestation: I personally reviewed and interpreted this imaging study as follows: Imaging: CT Scan Radiologist's impression: 1. New intraparenchymal hemorrhagic metastasis in the right parietal lobe measuring 3.1 x 3.2 cm. There is associated mass effect on the right lateral ventricle and a 2-3 mm leftward shift of the midline as result of the hemorrhage. 2. Interval increase in size, and probably number, of the intracranial metastases since 02/06/2023. 3. Findings were discussed with Gallo Walters at 11:50 a.m. on 03/18/2023. Laboratory Tests Range/Units 03/18/23 03/18/23 12:06 14:38 WBC (4.4-10.8) 10^3/uL 6.70 RBC (4.36-5.78) 10^6/uL 4.90 Hgb (13.5-17.5) g/dL 11.8 L Hct (40.0-50.0) % 38.1 L MCV (80-95) fL 78 L MCH (27.0-33.0) pg 24.1 L MCHC (32.0-36.0) % 31.0 L RDW (11.8-14.1) % 15.3 H Plt Count (130-400) 10^3/uL 332 MPV (8.0-11.0) fL 9.1 Immature Gran % 0.4 Neutrophils % 86.7 Lymphocytes % 10.6 Monocytes % 2.2 Eosinophils % 0.0 Basophils % 0.1 Nucleated RBC % (0.0-0.3) % 0.0 Absolute Neutrophils (1.2-6.7) 10^3/uL 5.80 Absolute Lymphocytes (1.2-3.4) 10^3/uL 0.71 L Absolute Monocytes (0.1-0.8) 10^3/uL 0.15 Absolute Eosinophils (0.0-0.7) 10^3/uL 0.00 Absolute Basophils (0.0-0.2) 10^3/uL 0.01 PT (9.1-11.1) sec 10.0 INR (0.9-1.1) 1.0 APTT (23.6-32.8) sec 22.9 L Sodium (136-145) mmol/L 131 L Potassium (3.5-5.1) mmol/L 4.6 Chloride (98-107) mmol/L 95 L Carbon Dioxide (21.0-32.0) mmol/L 24.9 Anion Gap (3-11) mmol/L 11.1 H BUN (7-18) mg/dL 21 H Creatinine (0.70-1.30) mg/dL 1.0 Est GFR (CKD-EPI 2020) (mL/min/1.73m2) 96.37 Glucose (74-106) mg/dL 139 H Calcium (8.5-10.1) mg/dL 8.7 Magnesium (1.8-2.4) mg/dL 2.3 Total Bilirubin (0.2-1.0) mg/dL 0.5 AST (15-37) U/L 87 H ALT (16-63) U/L 197 H Alkaline Phosphatase (46-116) U/L 176 H Troponin I (< or =60) ng/L < 50 Cancelled NT-Pro-B Natriuret Pep (<300) pg/mL 38 Total Protein (6.4-8.2) g/dL 7.0 Albumin (3.4-5.0) g/dL 3.0 L Radiologic Study #2: Attestation: I personally reviewed and interpreted this imaging study as follows: Imaging: X-Ray Radiologist's impression: Metastatic disease, no acute infiltrates Lab Data Lab results reviewed: Yes I reviewed the patient's lab results. Lab results narrative: as above ECG Data Attestation: I personally reviewed and interpreted this ECG (s) as follows: Interpretation: Please see official report by Dr. Chan. Sinus tachycardia, ventricular rate of 144. No STEMI. Quality:SDOH Health Related Social Needs: No Data to Display Critical Care Time Critical Care Time Critical Care Time: Yes Total Critical Care Time: 30 Attestation: Upon my evaluation, this patient had a high probability of clinically significant, life-threatening deterioration due to their current medical conditions, which required my direct attention, intervention, and personal management. I have personally provided greater than 30 minutes of critical care time exclusive of the time spend on separately billable procedures. Time includes obtaining a history, examining the patient, pulse oximetry, review of laboratory data, radiology results, discussion with consultants, arranging urgent treatment with development of a management plan, evaluation of patient's response to treatment, and monitoring for potential decompensation. Interventions were performed as documented above. Discharge Plan Disposition Patient Disposition: Against Medical Advice Condition: Serious Discharge Details Clinical Impression: Intracranial hemorrhage, Melanoma metastatic to brain Primary Care Provider: Edwardo Bhakta ED Provider: Gallo Walters [facility] and New Rx's Prescriptions: No Action ascorbic acid (vitamin C) 500 mg tablet 1,000 mg PO DAILY Hold Instructions: immunotherapy niacin (inositol niacinate) 500 mg capsule 1 cap PO DAILY Hold Instructions: immunotherapy acetylcysteine [NAC] 600 mg capsule 1,200 mg PO DAILY Hold Instructions: immunotherapy cholecalciferol (vitamin D3) 1,000 UNIT capsule 1 cap PO DAILY Hold Instructions: immunotherapy omega-3 fatty acids-fish oil 1 EACH capsule 1 cap PO DAILY Hold Instructions: immunotherapy THERAGRAN-M PREMIER CAPLET 1 EACH tablet 1 tab PO DAILY Hold Instructions: immunotherapy hydromorphone 2 mg tablet 2 mg PO Q4H PRN Hold Instructions: immunotherapy ibuprofen 600 mg tablet 600 mg PO Q8H PRN Hold Instructions: immunotherapy senna-docusate sodium Tablet 1 tab PO BID Hold Instructions: immunotherapy ondansetron 4 mg tablet,disintegrating 4 mg PO Q8H PRN (Reason: nausea and vomiting) Qty: 20 0RF Hold Instructions: immunotherapy Discharge Data Discharge Date/Time-TO BE ENTERED AT DEPARTURE: 03/18/23 14:53
== END 2023-03-18 14:53 | disposition left against medical advice (07) ==
PROVIDERS: Emergency Provider Physician Assistant; PCP Family Medicine
DX: M25.512 Pain in left shoulder (principal); C79.31 Secondary malignant neoplasm of brain; C78.00 Secondary malignant neoplasm of unspecified lung; I61.1 Nontraumatic intracerebral hemorrhage in hemisphere, cortical; C43.60 Malignant melanoma of unspecified upper limb, including shoulder; E78.5 Hyperlipidemia, unspecified; Z79.899 Other long term (current) drug therapy
CPT/HCPCS: 36415; 80053; 82962; 93005; 96365; 99291; 70450; 71046; 83735; 83880; 84484; 85025; 85610; 85730; 93010; J1953

== ENCOUNTER 2023-03-29 11:14 | Outpatient (CLI) | payer BC, SELFPAY ==
[2023-03-29 10:15] LABS: ALT 160 U/L (16-63); AST 64 U/L (15-37); Albumin 2.9 g/dL (3.4-5.0); Alkaline Phosphatase 112 U/L (46-116); Anion Gap 10.8 mmol/L (3-11); BUN 21 mg/dL (7-18); Bilirubin, Total 0.6 mg/dL (0.2-1.0); CO2 24.2 mmol/L (21.0-32.0); CREATININE 0.7 mg/dL (0.70-1.30); Calcium 9.5 mg/dL (8.5-10.1); Chloride 98 mmol/L (98-107); Estimated GFR 117.98 (mL/min/1.73m2); Glucose 132 mg/dL (74-106); LDH 548 U/L (85-227); Potassium 3.9 mmol/L (3.5-5.1); Sodium 133 mmol/L (136-145)
== END 2023-03-29 11:15 | disposition home or self-care (01) ==
LOC: LBO 11:24
PROVIDERS: PCP Family Medicine; Visit Provider Internal Medicine Hospice and Palliative Medicine
DX: R74.8 Abnormal levels of other serum enzymes (principal); C78.01 Secondary malignant neoplasm of right lung; C78.02 Secondary malignant neoplasm of left lung; C79.31 Secondary malignant neoplasm of brain; Z85.820 Personal history of malignant melanoma of skin; Z79.899 Other long term (current) drug therapy
CPT/HCPCS: 36415; 80053; 83615

== ENCOUNTER 2023-04-01 15:10 | Outpatient (CLI) | payer BC, SELFPAY ==
[2023-04-01 09:36] LABS: ALT 118 U/L (16-63); AST 36 U/L (15-37); Albumin 2.8 g/dL (3.4-5.0); Alkaline Phosphatase 98 U/L (46-116); Anion Gap 8.8 mmol/L (3-11); BUN 15 mg/dL (7-18); Bilirubin, Total 0.4 mg/dL (0.2-1.0); CO2 27.2 mmol/L (21.0-32.0); CREATININE 0.9 mg/dL (0.70-1.30); Calcium 8.5 mg/dL (8.5-10.1); Chloride 100 mmol/L (98-107); Estimated GFR 109.36 (mL/min/1.73m2); Glucose 222 mg/dL (74-106); Potassium 3.4 mmol/L (3.5-5.1); Sodium 136 mmol/L (136-145); Total Protein 6.6 g/dL (6.4-8.2)
[2023-04-01 09:47] LABS: LDH 476 U/L (85-227)
== END 2023-04-01 15:11 | disposition home or self-care (01) ==
LOC: LBO 15:10
PROVIDERS: PCP Family Medicine; Visit Provider Internal Medicine Hospice and Palliative Medicine
DX: R74.8 Abnormal levels of other serum enzymes (principal); Z79.899 Other long term (current) drug therapy
CPT/HCPCS: 36415; 80053; 83615

== ENCOUNTER 2023-04-07 10:41 | Outpatient (CLI) | payer BC, SELFPAY ==
[2023-04-07 09:32] LABS: ALT 96 U/L (16-63); AST 28 U/L (15-37); Albumin 2.8 g/dL (3.4-5.0); Alkaline Phosphatase 82 U/L (46-116); Anion Gap 12.6 mmol/L (3-11); BUN 20 mg/dL (7-18); Bilirubin, Total 0.3 mg/dL (0.2-1.0); CO2 26.4 mmol/L (21.0-32.0); CREATININE 0.9 mg/dL (0.70-1.30); Calcium 9.1 mg/dL (8.5-10.1); Chloride 96 mmol/L (98-107); Estimated GFR 109.36 (mL/min/1.73m2); Glucose 240 mg/dL (74-106); LDH 337 U/L (85-227); Potassium 4.1 mmol/L (3.5-5.1); Sodium 135 mmol/L (136-145); Total Protein 6.7 g/dL (6.4-8.2)
== END 2023-04-07 10:42 | disposition home or self-care (01) ==
LOC: LBO 10:41
PROVIDERS: PCP Family Medicine; Visit Provider Internal Medicine Hospice and Palliative Medicine
DX: C43.9 Malignant melanoma of skin, unspecified (principal)
CPT/HCPCS: 36415; 80053; 83615

== ENCOUNTER 2023-04-12 11:20 | Outpatient (CLI) | payer BC, SELFPAY ==
[2023-04-12 09:18] LABS: Abs Immature Grans 0.08 10^3/uL (0.0-0.06); Absolute Basophil Count 0.03 10^3/uL (0.0-0.2); Absolute Eosinophil Count 0.03 10^3/uL (0.0-0.7); Absolute Lymphocyte Count 2.09 10^3/uL (1.2-3.4); Absolute Neutrophil Count 8.23 10^3/uL (1.2-6.7); Basophils % 0.3; Eosinophils % 0.3; HCT 36.7 % (40.0-50.0); HGB 11.1 g/dL (13.5-17.5); Immature Grans % 0.7; Lymphocytes % 18.9; MCH 22.7 pg (27.0-33.0); MCHC 30.2 % (32.0-36.0); MCV 75 fL (80-95); MPV 8.6 fL (8.0-11.0); Monocytes % 5.4; Neutrophils % 74.4; Platelet Count 293 10^3/uL (130-400); RDW-SD 40.8 fL; WBC 11.06 10^3/uL (4.4-10.8)
[2023-04-12 09:41] LABS: ALT 105 U/L (16-63); AST 40 U/L (15-37); Albumin 2.8 g/dL (3.4-5.0); Alkaline Phosphatase 87 U/L (46-116); Anion Gap 11.4 mmol/L (3-11); BUN 18 mg/dL (7-18); Bilirubin, Total 0.4 mg/dL (0.2-1.0); CO2 26.6 mmol/L (21.0-32.0); CREATININE 0.9 mg/dL (0.70-1.30); Chloride 100 mmol/L (98-107); Estimated GFR 109.36 (mL/min/1.73m2); FREE T4 0.97 ng/dL (0.76-1.46); Glucose 196 mg/dL (74-106); LDH 362 U/L (85-227); Potassium 4.2 mmol/L (3.5-5.1); Sodium 138 mmol/L (136-145); TSH 2.18 uIU/mL (0.36-3.74); Total Protein 6.6 g/dL (6.4-8.2)
== END 2023-04-12 11:21 | disposition home or self-care (01) ==
LOC: LBO 11:20
PROVIDERS: PCP Family Medicine; Visit Provider Internal Medicine Hospice and Palliative Medicine
DX: C43.9 Malignant melanoma of skin, unspecified (principal); R74.8 Abnormal levels of other serum enzymes; Z79.899 Other long term (current) drug therapy
CPT/HCPCS: 36415; 80053; 83615; 84439; 84443; 85025